=== PATIENT | male | born 1955 | race Two or more races ===

== ENCOUNTER 2016-12-17 00:57 | Inpatient (IN) | payer SELFPAY ==
[~2016-12-17] VITALS: Ht 170.2 cm; Wt 90.7 kg
[2016-12-17] MEDS ORDERED: ONDANSETRON PF 4 MG/2 ML VIAL. IV ONE (01:15)
[2016-12-17] MEDS ORDERED: MORPHINE SULFATE 4 MG/ML DISP.SYRIN. IV ONE ×2 (01:15→03:15)
[2016-12-17] MEDS ORDERED: IV NORMAL SALINE 1000ML BAG 1,000 ML IV SCH ×2 (01:15→04:30)
[2016-12-17] MEDS ORDERED: FAMOTIDINE 20 MG/2 ML VIAL IVP ONE (01:15)
--- NOTE | 2016-12-17 01:17 | PHYS DOC ---
Past Medical History Past Medical History: High Cholesterol Additional Past Surgical Histo: hernia repair, hemorrhoidectomy Adult General Chief Complaint Chief Complaint: ABDOMINAL PAIN HPI HPI Patient is a 61 year old male who presents with abdominal pain and N/V. Patient reports ~1999 this evening he had acute onset of sharp epigastric pain that is accompanied by nausea and vomiting. No clear inciting or mitigating factors. He tried some pepto-bismol with insufficient relief. No chest pain, no SOB. No other acute complaints. No prior similar episodes. Review of Systems Review of Systems Constitutional: Denies fever or chills Eyes: Denies change in visual acuity or eye pain HENT: Denies nasal congestion or sore throat Respiratory: Denies cough or shortness of breath Cardiovascular: Denies chest pain GI: Epigastric abdominal pain, nausea, vomiting. Denies bloody stools or diarrhea : Denies dysuria or hematuria Musculoskeletal: Denies back pain or joint pain Integument: Denies rash or skin lesions Neurologic: Denies headache, focal weakness or sensory changes Current Medications Current Medications Current Medications Medications (Trade) Dose Ordered Sig/David Start Time Stop Time Status Last Admin Dose Admin Acetaminophen (Tylenol) 650 mg PRN Q4HRS PRN 12/17/16 04:30 12/18/16 04:29 Famotidine (Pepcid) 20 mg 1X ONCE 12/17/16 01:15 12/17/16 01:18 DC 12/17/16 01:55 20 MG Info (Do NOT chart on this entry -- for MONITORING) 1 each PRN DAILY PRN 12/17/16 01:30 12/19/16 01:29 Iohexol (Omnipaque 300 Mg/ml) 75 ml 1X ONCE 12/17/16 01:30 12/17/16 01:31 DC 12/17/16 03:22 75 ML Morphine Sulfate 4 mg 4 mg PRN Q1HR PRN 12/17/16 04:30 Ondansetron HCl (Zofran) 4 mg PRN Q8HRS PRN 12/17/16 04:30 12/18/16 04:29 Sodium Chloride (Iv Sodium Chloride 0.9% 1000ml Bag) 1,000 ml @ 125 mls/hr Q8H 12/17/16 04:30 12/18/16 04:29 Allergies Allergies Allergies Coded Allergies Type Severity Reaction Last Updated Verified No Known Drug Allergies 12/17/16 No Physical Exam Physical Exam Constitutional: Well developed, well nourished, no acute distress, non-toxic appearance HENT: Normocephalic, atraumatic, bilateral external ears normal Eyes: EOMI, conjunctiva normal, no discharge Neck: Normal range of motion, no stridor Cardiovascular: Heart rate normal, regular rhythm, no murmur Lungs & Thorax: Bilateral breath sounds clear to auscultation Abdomen: Bowel sounds normal, soft, non-distended, LUQ/epigastric/RUQ TTP without guarding or rebound Skin: Warm, dry, no erythema, no rash Extremities: No obvious deformity, no edema Neurologic: Alert and oriented X 3, no gross deficits noted Psychologic: Affect normal, judgement normal, mood normal Current Patient Data Vital Signs Vital Signs Date Time Temp Pulse Resp B/P Pulse Ox O2 Delivery O2 Flow Rate FiO2 12/17/16 03:39 99 Room Air 12/17/16 01:55 22 12/17/16 01:16 98.1 58 148/76 98.1 Lab Values Laboratory Tests Test 12/17/16 01:50 12/17/16 02:45 12/17/16 02:53 12/17/16 03:07 White Blood Count 15.3x10^3/uL (4.0-11.0) H Red Blood Count 4.71x10^6/uL (4.30-5.70) Hemoglobin 14.9g/dL (13.0-17.5) Hematocrit 45.2% (39.0-53.0) Mean Corpuscular Volume 96fL (79-100) Mean Corpuscular Hemoglobin 32pg (25-35) Mean Corpuscular Hemoglobin Concent 33g/dL (31-37) Red Cell Distribution Width 13.3% (11.5-14.5) Platelet Count 146x10^3/uL (140-400) Neutrophils (%) (Auto) 73% (31-73) Lymphocytes (%) (Auto) 20% (24-48) L Monocytes (%) (Auto) 7% (0-9) Eosinophils (%) (Auto) 0% (0-3) Basophils (%) (Auto) 0% (0-3) Neutrophils # (Auto) 11.1x10^3uL (1.8-7.7) H Lymphocytes # (Auto) 3.0x10^3/uL (1.0-4.8) Monocytes # (Auto) 1.0x10^3/uL (0.0-1.1) Eosinophils # (Auto) 0.1x10^3/uL (0.0-0.7) Basophils # (Auto) 0.0x10^3/uL (0.0-0.2) Sodium Level 143mmol/L (136-145) Potassium Level 3.8mmol/L (3.5-5.1) Chloride Level 106mmol/L (98-107) Carbon Dioxide Level 26mmol/L (21-32) Anion Gap 11 (6-14) 19mmol/L (6-14) H Blood Urea Nitrogen 12mg/dL (8-26) Creatinine 0.8mg/dL (0.7-1.3) Estimated GFR (Cockcroft-Gault) 98.6 BUN/Creatinine Ratio 15 (6-20) Glucose Level 187mg/dL (70-99) H 184mg/dL (70-99) H Calcium Level 8.1mg/dL (8.5-10.1) L Total Bilirubin 0.5mg/dL (0.2-1.0) Aspartate Amino Transferase (AST) 136U/L (15-37) H Alanine Aminotransferase (ALT) 141U/L (16-63) H Alkaline Phosphatase 81U/L (46-116) Troponin I Quantitative < 0.017ng/mL (0.000-0.055) Total Protein 6.8g/dL (6.4-8.2) Albumin 3.6g/dL (3.4-5.0) Albumin/Globulin Ratio 1.1 (1.0-1.7) Cholesterol Level 151mg/dL (0-200) Lipase 51529F/L (73-393) H POC Hemoglobin 15.0g/dL (14-18) POC Hematocrit 44% (37-52) POC Sodium 141mmol/L (135-145) POC Potassium 4.0mmol/L (3.5-5.0) POC Chloride 102mmol/L (98-110) POC Total CO2 25mmol/L (23-32) POC Blood Urea Nitrogen 12mg/dL (8-26) POC Creatinine 0.7mg/dL (0.5-1.4) POC Ionized Calcium (Joanie) 1.09mmol/L (1.13-1.32) L Urine Collection Type Unknown Urine Color Yellow Urine Clarity Clear Urine pH 5.5 Urine Specific [place] 1.010 Urine Protein Negativemg/dL (NEG-TRACE) Urine Glucose (UA) Negativemg/dL (NEG) Urine Ketones (Stick) Negativemg/dL (NEG) Urine Blood Negative (NEG) Urine Nitrite Negative (NEG) Urine Bilirubin Negative (NEG) Urine Urobilinogen Dipstick 0.2mg/dL (0.2 mg/dL) Urine Leukocyte Esterase Negative (NEG) Urine RBC Occ/HPF (0-2) Urine WBC Occ/HPF (0-4) Urine Squamous Epithelial Cells Few/LPF Urine Bacteria 0/HPF (0-FEW) Urine Hyaline Casts Few/HPF Urine Mucus Slight/LPF Laboratory Tests 12/17/16 01:50 Laboratory Tests 12/17/16 02:45 12/17/16 02:53 EKG EKG EKG (my read): sinus rhythm, rate 62, normal axis, nonspecific ST changes Radiology/Procedures Radiology/Procedures CT A/P: IMPRESSION Acute pancreatitis. Cholelithiasis Course & Med Decision Making Course & Med Decision Making Pertinent Labs and Imaging studies reviewed. (See chart for details) Patient is 61-year-old male who presents with upper abdominal pain accompanied by nausea and vomiting. Differential includes gastritis, pancreatitis, PUD, bowel obstruction. Will obtain labs and CT abdomen/pelvis to evaluate. IV fluids , pain medication, nausea medication, Pepcid ordered for relief of symptoms. Labs notable for markedly elevated lipase. Imaging results as above. Discussed results with patient. Will admit under the care of Dr. Callaway for further evaluation and treatment. Dragon Disclaimer Dragon Disclaimer This electronic medical record was generated, in whole or in part, using a voice recognition dictation system. Departure Departure Impression: Primary Impression: Pancreatitis Disposition: ADMITTED INPATIENT Admitting Physician: Other Condition: GUARDED Referrals: MARTIN CENTENO (PCP) CHRISTIAN ERICKSON MD Dec 17, 2016 01:17
[2016-12-17] MEDS ORDERED: IOHEXOL 300 MG/ML 75 ML VIAL IV ONE (01:30)
[2016-12-17] MEDS ORDERED: CONTRAST GIVEN MC PRN (01:30)
[2016-12-17 02:00] LABS: BASO % 0 % (0-3); EOS % 0 % (0-3); HEMATOCRIT 45.2 % (39.0-53.0); HEMOGLOBIN 14.9 g/dL (13.0-17.5); LYMPH % 20 % (24-48); MEAN CORPUSCULAR HEMOGLOBIN 32 pg (25-35); MEAN CORPUSCULAR HGB CONC 33 g/dL (31-37); MEAN CORPUSCULAR VOLUME 96 fL (79-100); MONO % 7 % (0-9); NEUT % 73 % (31-73); PLATELET COUNT 146 x10^3/uL (140-400); RED BLOOD COUNT 4.71 x10^6/uL (4.30-5.70); RED CELL DISTRIBUTION WIDTH 13.3 % (11.5-14.5); WHITE BLOOD COUNT 15.3 x10^3/uL (4.0-11.0)
[2016-12-17 03:04] LABS: CALCIUM 8.1 mg/dL (8.5-10.1); CREATININE 0.8 mg/dL (0.7-1.3); GFR 98.6; POTASSIUM 3.8 mmol/L (3.5-5.1)
[2016-12-17 03:10] LABS: ALBUMIN 3.6 g/dL (3.4-5.0); ALBUMIN/GLOBULIN RATIO 1.1 (1.0-1.7); TOTAL BILIRUBIN 0.5 mg/dL (0.2-1.0); TOTAL PROTEIN 6.8 g/dL (6.4-8.2)
[2016-12-17 03:26] LABS: BILIRUBIN,URINE NEGATIVE (NEG); GLUCOSE,URINE NEGATIVE (NEG); NITRITE,URINE NEGATIVE (NEG); PH,URINE 5.5; PROTEIN,URINE NEGATIVE (NEG-TRACE); UROBILINOGEN,URINE 0.2 mg/dL (0.2 mg/dL)
[2016-12-17 03:36] LABS: BACTERIA,URINE 0 /HPF (0-FEW); RBC,URINE OCC /HPF (0-2); SQUAMOUS EPITHELIAL CELL,UR FEW /LPF; WBC,URINE OCC /HPF (0-4)
--- NOTE | 2016-12-17 03:51 | RAD ---
PROCEDURE CT abdomen and pelvis with contrast HISTORY upper abdominal pain started 8:00pm 12/16/2016; nausea and vomiting
omni 300 75cc TECHNIQUE One or more of the following individualized dose reduction techniques were utilized for this examination: 1. Automated exposure control; 2. Adjustment of the mA and/or kV according to patient size; 3. Use of iterative reconstruction technique. COMPARISON FINDINGS CT scan of the abdomen and pelvis was done using 75 mL Omnipaque 300. The lung bases are clear except for minimal atelectasis. There is no effusion. There is a gallstone in the gallbladder. The gallbladder wall is not thickened. Liver is normal in appearance. Spleen is unremarkable. Adrenal glands are normal. There is no mass or hydronephrosis in the kidneys. There is fluid and edema surrounding the tail of the pancreas consistent with an acute pancreatitis. Fluid extends into the mesentery. There is no adenopathy. There is no free air. There is no bowel obstruction. Appendix is normal. Bladder is mildly distended. There is a trace of fluid in the pelvis. IMPRESSION Acute pancreatitis. Cholelithiasis Electronically signed by: Artemio Alvarado MD (Dec 17, 2016 03:50:16)
[2016-12-17] MEDS ORDERED: ACETAMINOPHEN 325 MG TABLET. PO PRN ×2 (04:30→09:45)
[2016-12-17] MEDS ORDERED: ONDANSETRON PF 4 MG/2 ML VIAL. IV PRN (04:30)
--- NOTE | 2016-12-17 04:51 | ACF ---
Admit Criteria Forms Admit Criteria Forms Admit Criteria Forms PANCREATITIS Clinical Indications for Admission to Inpatient Care (Place 'X' for any and all applicable criteria): Admission is indicated for ANY ONE of the following (1)(2)(3)(4): [X]I. Acute pancreatitis[A] as indicated by 2 or more of the following: [X]a) Abdominal pain (eg, epigastric, left upper quadrant) [X]b) Serum amylase or serum lipase greater than 3 times the upper limit of normal [ ]c) Characteristic findings from abdominal imaging (eg, pancreatic inflammation, pancreatic necrosis, peripancreatic fluid collection)[B] [ ]II. Pancreatitis (acute or chronic ) requiring inpatient care as indicated by 1 or more of the following : [ ]a) Inability to maintain oral hydration Hypoxemia [ ]b) Evidence of infection (eg, fever, peripancreatic abscess) [ ]c) Severe pain requiring acute inpatient management [ ]d) Hemodynamic instability [ ]e) Hypoxemia [ ]f) Acute renal failure [ ]g) Severe electrolyte abnormalities Extended stay beyond goal length of stay may be needed for (1)(11) [ ]a) Severe acute pancreatitis (10)(19) [ ]b) Persistent symptoms, ascites, or pleural effusion [ ]c) Abdominal compartment syndrome (10) [ ]d) Late complications [ ]e) Acute renal failure (27) [ ]f) Gallstones in gallbladder The original [employer] content created by [employer] has been revised. The portions of the content which have been revised are identified through the use of italic text or in bold,and [facility] has neither reviewed nor approved the modified material.All other unmodified content is copyright [employer]. Please see references footnoted in the original [employer] edition 2016 GILMA SETH Dec 17, 2016 04:51
--- NOTE | 2016-12-17 06:23 | EKG ---
[facility] [address] [place] [address] Test Date: 2016-12-17 Test Time: 01:25:25 Pat Name: GEN QURESHI Department: Room: Gender: M Fiscal Manager: : [id number] Requested By: CHRISTIAN ERICKSON Order Number: [id number] Reading MD: Chris Singh Measurements Intervals [place] Rate: 62 P: NM: QRS: 50 QRSD: 82 T: 60 QT: 428 QTc: 437 Interpretive Statements SINUS RHYTHM NONSPECIFIC ST-T WAVE CHANGES. RI6.01 Unconfirmed report No previous ECG available for comparison Electronically Signed On 12-24-2016 10:26:57 DOCUMENTATION ANALYST by Chris Singh
[2016-12-17 07:45] VITALS: BP 141/82
--- NOTE | 2016-12-17 08:43 | PDOC2 ---
GI CONSULT Reason For Consult: Pancreatitis HPI: HPI: 61 y/o male admitted through the ER where he was evaluated for periumbilical pain w/ n/v that began yesterday. He ate soup at a restaurant, went home, and began vomiting excessively. Pain began around this time. Denies similar episodes, reflux/indigestion, change in appetite, weight loss, diarrhea, hematemesis, hematochezia, melena. Occasional constipation treated w / an OTC organic med. Drinks only on holidays. H/o colonoscopy many years ago , apparently normal except for hemorrhoids. No previous EGD. Labs w/ elevated WBC 15.3, normal bili, AST 136, ALT 141, lipase >92511. CT w/ fluid and edema around tail of pancreas, gallstone, and normal liver. PMH: PMH: constipation, right inguinal hernia repair, hemorrhoidectomy FH: Family History: No pertinent hx Social History: Smoke: Quit (30 years ago) ALCOHOL: occassional (holidays) Drugs: None ROS: GEN: Denies fevers, chills, sweats HEENT: Denies blurred vision, sore throat CV: Denies chest pain RESP: Denies shortness of air, cough GI: Per HPI : Denies hematuria, dysuria ENDO: Denies weight changes NEURO: Denies confusion, dizziness MSK: Denies weakness, joint pain/swelling SKIN: Denies jaundice, pruritus VItals: Vitals: Vital Signs Date Time Temp Pulse Resp B/P Pulse Ox O2 Delivery O2 Flow Rate FiO2 12/17/16 07:45 99.9 75 18 141/82 96 Room Air 99.9 Labs: Labs: Laboratory Tests Test 12/17/16 01:50 12/17/16 02:45 12/17/16 02:53 12/17/16 03:07 White Blood Count 15.3x10^3/uL (4.0-11.0) Red Blood Count 4.71x10^6/uL (4.30-5.70) Hemoglobin 14.9g/dL (13.0-17.5) Hematocrit 45.2% (39.0-53.0) Mean Corpuscular Volume 96fL (79-100) Mean Corpuscular Hemoglobin 32pg (25-35) Mean Corpuscular Hemoglobin Concent 33g/dL (31-37) Red Cell Distribution Width 13.3% (11.5-14.5) Platelet Count 146x10^3/uL (140-400) Neutrophils (%) (Auto) 73% (31-73) Lymphocytes (%) (Auto) 20% (24-48) Monocytes (%) (Auto) 7% (0-9) Eosinophils (%) (Auto) 0% (0-3) Basophils (%) (Auto) 0% (0-3) Neutrophils # (Auto) 11.1x10^3uL (1.8-7.7) Lymphocytes # (Auto) 3.0x10^3/uL (1.0-4.8) Monocytes # (Auto) 1.0x10^3/uL (0.0-1.1) Eosinophils # (Auto) 0.1x10^3/uL (0.0-0.7) Basophils # (Auto) 0.0x10^3/uL (0.0-0.2) Sodium Level 143mmol/L (136-145) Potassium Level 3.8mmol/L (3.5-5.1) Chloride Level 106mmol/L (98-107) Carbon Dioxide Level 26mmol/L (21-32) Anion Gap 11 (6-14) 19mmol/L (6-14) Blood Urea Nitrogen 12mg/dL (8-26) Creatinine 0.8mg/dL (0.7-1.3) Estimated GFR (Cockcroft-Gault) 98.6 BUN/Creatinine Ratio 15 (6-20) Glucose Level 187mg/dL (70-99) 184mg/dL (70-99) Calcium Level 8.1mg/dL (8.5-10.1) Total Bilirubin 0.5mg/dL (0.2-1.0) Aspartate Amino Transf (AST/SGOT) 136U/L (15-37) Alanine Aminotransferase (ALT/SGPT) 141U/L (16-63) Alkaline Phosphatase 81U/L (46-116) Troponin I Quantitative < 0.017ng/mL (0.000-0.055) Total Protein 6.8g/dL (6.4-8.2) Albumin 3.6g/dL (3.4-5.0) Albumin/Globulin Ratio 1.1 (1.0-1.7) Cholesterol Level 151mg/dL (0-200) Lipase 93276X/L (73-393) Bedside Hemoglobin 15.0g/dL (14-18) Bedside Hematocrit 44% (37-52) Bedside Sodium 141mmol/L (135-145) Bedside Potassium 4.0mmol/L (3.5-5.0) Bedside Chloride 102mmol/L (98-110) Bedside Total CO2 25mmol/L (23-32) Bedside Blood Urea Nitrogen 12mg/dL (8-26) Bedside Creatinine 0.7mg/dL (0.5-1.4) Bedside Ionized Calcium (Joanie) 1.09mmol/L (1.13-1.32) Urine Collection Type Unknown Urine Color Yellow Urine Clarity Clear Urine pH 5.5 Urine Specific [place] 1.010 Urine Protein Negativemg/dL (NEG-TRACE) Urine Glucose (UA) Negativemg/dL (NEG) Urine Ketones (Stick) Negativemg/dL (NEG) Urine Blood Negative (NEG) Urine Nitrite Negative (NEG) Urine Bilirubin Negative (NEG) Urine Urobilinogen Dipstick 0.2mg/dL (0.2 mg/dL) Urine Leukocyte Esterase Negative (NEG) Urine RBC Occ/HPF (0-2) Urine WBC Occ/HPF (0-4) Urine Squamous Epithelial Cells Few/LPF Urine Bacteria 0/HPF (0-FEW) Urine Hyaline Casts Few/HPF Urine Mucus Slight/LPF Allergies: Coded Allergies: No Known Drug Allergies (Unverified , 12/17/16) Medications: Current Medications Medications (Trade) Dose Ordered Sig/David Route PRN Reason Start Time Stop Time Status Last Admin Dose Admin Sodium Chloride (Iv Sodium Chloride 0.9% 1000ml Bag) 1,000 ml @ 1,000 mls/hr Q1H IV 12/17/16 01:15 12/17/16 02:14 DC 12/17/16 01:55 Ondansetron HCl (Zofran) 4 mg 1X ONCE IV 12/17/16 01:15 12/17/16 01:18 DC 12/17/16 01:55 Famotidine (Pepcid) 20 mg 1X ONCE IVP 12/17/16 01:15 12/17/16 01:18 DC 12/17/16 01:55 Morphine Sulfate 4 mg 1X ONCE IV 12/17/16 01:15 12/17/16 01:18 DC 12/17/16 01:55 Iohexol (Omnipaque 300 Mg/ml) 75 ml 1X ONCE IV 12/17/16 01:30 12/17/16 01:31 DC 12/17/16 03:22 Morphine Sulfate 4 mg 4 mg 1X ONCE IV 12/17/16 03:15 12/17/16 03:16 DC 12/17/16 03:39 Sodium Chloride (Iv Sodium Chloride 0.9% 1000ml Bag) 1,000 ml @ 125 mls/hr Q8H IV 12/17/16 04:30 12/18/16 04:29 12/17/16 08:33 Imaging: Imaging: CT A/P w/ IV contrast 12/17/16 FINDINGS The lung bases are clear except for minimal atelectasis. There is no effusion. There is a gallstone in the gallbladder. The gallbladder wall is not thickened. Liver is normal in appearance. Spleen is unremarkable. Adrenal glands are normal. There is no mass or hydronephrosis in the kidneys. There is fluid and edema surrounding the tail of the pancreas consistent with an acute pancreatitis. Fluid extends into the mesentery. There is no adenopathy. There is no free air. There is no bowel obstruction. Appendix is normal. Bladder is mildly distended. There is a trace of fluid in the pelvis. IMPRESSION Acute pancreatitis. Cholelithiasis PE: GEN: NAD HEENT: Atraumatic, PERRL LUNGS: CTAB HEART: RRR ABD: BS quiet, soft, periumbilical tenderness to epigastrium, less so RUQ EXTREMITY: No edema SKIN: No rashes, no jaundice NEURO/PSYCH: A & O 3 A/P: A/P: Periumbilical pain, n/v -sudden onset yesterday Elevated lipase, abnormal CT A/P -lipase >17155, fluid and edema around pancreatic tail w/ gallstone -no h/o pancreatitis CRC screen -recalls previous colonoscopy years ago revealing hemorrhoids -- Pancreatitis. Continue medical therapy w/ NPO, anti-emetics, pain control. Follow labs. Will ask surgery to see re: gallstone. RUPERTO GORDILLO Dec 17, 2016 08:43
[2016-12-17] MEDS ORDERED: hydrALAZINE 20 MG/ML VIAL. IVP PRN (09:45)
[2016-12-17] MEDS ORDERED: ALBUTEROL SULFATE 2.5 MG/3 ML NEBU. NEB PRN (09:45)
--- NOTE | 2016-12-17 09:56 | PDOC2 ---
DEEPENRIQUE Rufino [employer]OR 12/17/16 0956: CONSULT Date of Consult Date of Consult DATE: 12/17/16 TIME: 09:51 Reason for Consult Reason for Consult: gallstone pancreatitis Referring Physician Referring Physician: ER Identification/Chief Complaint Chief Complaint abdominal pain Source Source: Chart review, Patient History of Present Illness Reason for Visit: Admitted with acute onset of periumbilical pain and vomiting after eating yesterday. Still having some pain, no emesis. No similar symptoms in past, no history of pancreatitis Past Medical History Past Medical History no pertinent hx Past Surgical History Past Surgical History: Hernia Repair Family History Family History: Other (noncontributory to current illness ) Social History Quit (30 years ago) ALCOHOL: occassional (holidays) Drugs: None Current Problem List Problem List Problems Medical Problems: (1) Pancreatitis Status: Acute Current Medications Current Medications Current Medications Sodium Chloride (Iv Sodium Chloride 0.9% 1000ml Bag) 1,000 ml @ 1,000 mls/hr Q1H IV Last administered on 12/17/16 01:55; Start 12/17/16 at 01:15; Stop at 02:14; Status DC Ondansetron HCl (Zofran) 4 mg 1X ONCE IV Last administered on 12/17/16 01:55 ; Start 12/17/16 at 01:15; Stop 12/17/16 at 01:18; Status DC Famotidine (Pepcid) 20 mg 1X ONCE IVP Last administered on 12/17/16 01:55; Start 12/17/16 at 01:15; Stop 12/17/16 at 01:18; Status DC Morphine Sulfate 4 mg 1X ONCE IV Last administered on 12/17/16 01:55; Start 12/17/16 at 01:15; Stop 12/17/16 at 01:18; Status DC Iohexol (Omnipaque 300 Mg/ml) 75 ml 1X ONCE IV Last administered on 12/17/16 03:22; Start 12/17/16 at 01:30; Stop 12/17/16 at 01:31; Status DC Info (Do NOT chart on this entry -- for MONITORING) 1 each PRN DAILY PRN MC SEE COMMENTS; Start 12/17/16 at 01:30; Stop 12/19/16 at 01:29 Morphine Sulfate 4 mg 1X ONCE IV Last administered on 12/17/16 03:39; Start 12/17/16 at 03:15; Stop 12/17/16 at 03:16; Status DC Ondansetron HCl (Zofran) 4 mg PRN Q8HRS PRN IV NAUSEA/VOMITING; Start 12/17/16 at 04:30; Stop 12/18/16 at 04:29 Morphine Sulfate 4 mg 4 mg PRN Q1HR PRN IV PAIN; Start 12/17/16 at 04:30 Sodium Chloride (Iv Sodium Chloride 0.9% 1000ml Bag) 1,000 ml @ 125 mls/hr Q8H IV Last administered on 12/17/16 08:33; Start 12/17/16 at 04:30; Stop at 09:42; Status DC Acetaminophen (Tylenol) 650 mg PRN Q4HRS PRN PO FEVER; Start 12/17/16 at 04:30 ; Stop 12/18/16 at 04:29 Acetaminophen (Tylenol) 325 mg PRN Q6HRS PRN PO MILD PAIN / TEMP; Start at 09:45 Acetaminophen/ Hydrocodone Bitart (Lortab 5/325) 1 tab PRN Q6HRS PRN PO MODERATE TO SEVERE PAIN; Start 12/17/16 at 09:45 Hydralazine HCl (Apresoline) 10 mg PRN Q4HRS PRN IVP ELEVATED BP, SEE COMMENTS ; Start 12/17/16 at 09:45 Ondansetron HCl (Zofran) 4 mg PRN Q8HRS PRN IV NAUSEA/VOMITING; Start 12/17/16 at 09:45 Albuterol Sulfate 2.5 mg 2.5 mg PRN Q4HRS PRN NEB SHORTNESS OF BREATH; Start at 09:45 Sodium Chloride (Iv Sodium Chloride 0.9% 1000ml Bag) 1,000 ml @ 150 mls/hr Q6H40M IV ; Start 12/17/16 at 09:41; Stop 12/19/16 at 09:40 Allergies Allergies: Coded Allergies: No Known Drug Allergies (Unverified , 12/17/16) ROS General: No: Chills, Other (fevers) PSYCHOLOGICAL ROS: No: Anxiety, Depression Eyes: No Double vision HEENT: No: Heacaches, Sore Throat Hematological and Lymphatic: No: Bleeding Problems, Blood Clots Respiratory: No: Cough, Shortness of breath Cardiovascular: No Chest Pain, No Palpitations Gastrointestinal: Yes Other (see hpi) Genitourinary: No Dysuria, No Hematuria Musculoskeletal: No Joint Pain, No Muscle Pain Neurological: No Confusion, No Numbness/Tingling Skin: No Pruritus, No Rash Physical Exam General: Alert, Oriented X3, Cooperative, No acute distress HEENT: PERRLA, Mucous membr. moist/pink Lungs: Clear to auscultation, Normal air movement Heart: Regular rate, Normal S1, Normal S2, No murmurs Abdomen: Soft, Other (periumbilical tenderness ) Extremities: No clubbing, No cyanosis Skin: No rashes, No breakdown Neuro: Normal gait, Normal speech Psych/Mental Status: Mental status NL, Mood NL MUSCULOSKELETAL: No deformity, No swelling Vitals VITALS Vital Signs Date Time Temp Pulse Resp B/P Pulse Ox O2 Delivery O2 Flow Rate FiO2 12/17/16 07:45 99.9 75 18 141/82 96 Room Air 99.9 Labs Labs Laboratory Tests Test 12/17/16 01:50 12/17/16 02:45 12/17/16 02:53 12/17/16 03:07 White Blood Count 15.3x10^3/uL (4.0-11.0) Red Blood Count 4.71x10^6/uL (4.30-5.70) Hemoglobin 14.9g/dL (13.0-17.5) Hematocrit 45.2% (39.0-53.0) Mean Corpuscular Volume 96fL (79-100) Mean Corpuscular Hemoglobin 32pg (25-35) Mean Corpuscular Hemoglobin Concent 33g/dL (31-37) Red Cell Distribution Width 13.3% (11.5-14.5) Platelet Count 146x10^3/uL (140-400) Neutrophils (%) (Auto) 73% (31-73) Lymphocytes (%) (Auto) 20% (24-48) Monocytes (%) (Auto) 7% (0-9) Eosinophils (%) (Auto) 0% (0-3) Basophils (%) (Auto) 0% (0-3) Neutrophils # (Auto) 11.1x10^3uL (1.8-7.7) Lymphocytes # (Auto) 3.0x10^3/uL (1.0-4.8) Monocytes # (Auto) 1.0x10^3/uL (0.0-1.1) Eosinophils # (Auto) 0.1x10^3/uL (0.0-0.7) Basophils # (Auto) 0.0x10^3/uL (0.0-0.2) Sodium Level 143mmol/L (136-145) Potassium Level 3.8mmol/L (3.5-5.1) Chloride Level 106mmol/L (98-107) Carbon Dioxide Level 26mmol/L (21-32) Anion Gap 11 (6-14) 19mmol/L (6-14) Blood Urea Nitrogen 12mg/dL (8-26) Creatinine 0.8mg/dL (0.7-1.3) Estimated GFR (Cockcroft-Gault) 98.6 BUN/Creatinine Ratio 15 (6-20) Glucose Level 187mg/dL (70-99) 184mg/dL (70-99) Calcium Level 8.1mg/dL (8.5-10.1) Total Bilirubin 0.5mg/dL (0.2-1.0) Aspartate Amino Transf (AST/SGOT) 136U/L (15-37) Alanine Aminotransferase (ALT/SGPT) 141U/L (16-63) Alkaline Phosphatase 81U/L (46-116) Troponin I Quantitative < 0.017ng/mL (0.000-0.055) Total Protein 6.8g/dL (6.4-8.2) Albumin 3.6g/dL (3.4-5.0) Albumin/Globulin Ratio 1.1 (1.0-1.7) Cholesterol Level 151mg/dL (0-200) Lipase 44491W/L (73-393) Bedside Hemoglobin 15.0g/dL (14-18) Bedside Hematocrit 44% (37-52) Bedside Sodium 141mmol/L (135-145) Bedside Potassium 4.0mmol/L (3.5-5.0) Bedside Chloride 102mmol/L (98-110) Bedside Total CO2 25mmol/L (23-32) Bedside Blood Urea Nitrogen 12mg/dL (8-26) Bedside Creatinine 0.7mg/dL (0.5-1.4) Bedside Ionized Calcium (Joanie) 1.09mmol/L (1.13-1.32) Urine Collection Type Unknown Urine Color Yellow Urine Clarity Clear Urine pH 5.5 Urine Specific [place] 1.010 Urine Protein Negativemg/dL (NEG-TRACE) Urine Glucose (UA) Negativemg/dL (NEG) Urine Ketones (Stick) Negativemg/dL (NEG) Urine Blood Negative (NEG) Urine Nitrite Negative (NEG) Urine Bilirubin Negative (NEG) Urine Urobilinogen Dipstick 0.2mg/dL (0.2 mg/dL) Urine Leukocyte Esterase Negative (NEG) Urine RBC Occ/HPF (0-2) Urine WBC Occ/HPF (0-4) Urine Squamous Epithelial Cells Few/LPF Urine Bacteria 0/HPF (0-FEW) Urine Hyaline Casts Few/HPF Urine Mucus Slight/LPF Laboratory Tests Test 12/17/16 01:50 12/17/16 02:45 12/17/16 02:53 12/17/16 03:07 White Blood Count 15.3x10^3/uL (4.0-11.0) Red Blood Count 4.71x10^6/uL (4.30-5.70) Hemoglobin 14.9g/dL (13.0-17.5) Hematocrit 45.2% (39.0-53.0) Mean Corpuscular Volume 96fL (79-100) Mean Corpuscular Hemoglobin 32pg (25-35) Mean Corpuscular Hemoglobin Concent 33g/dL (31-37) Red Cell Distribution Width 13.3% (11.5-14.5) Platelet Count 146x10^3/uL (140-400) Neutrophils (%) (Auto) 73% (31-73) Lymphocytes (%) (Auto) 20% (24-48) Monocytes (%) (Auto) 7% (0-9) Eosinophils (%) (Auto) 0% (0-3) Basophils (%) (Auto) 0% (0-3) Neutrophils # (Auto) 11.1x10^3uL (1.8-7.7) Lymphocytes # (Auto) 3.0x10^3/uL (1.0-4.8) Monocytes # (Auto) 1.0x10^3/uL (0.0-1.1) Eosinophils # (Auto) 0.1x10^3/uL (0.0-0.7) Basophils # (Auto) 0.0x10^3/uL (0.0-0.2) Sodium Level 143mmol/L (136-145) Potassium Level 3.8mmol/L (3.5-5.1) Chloride Level 106mmol/L (98-107) Carbon Dioxide Level 26mmol/L (21-32) Anion Gap 11 (6-14) 19mmol/L (6-14) Blood Urea Nitrogen 12mg/dL (8-26) Creatinine 0.8mg/dL (0.7-1.3) Estimated GFR (Cockcroft-Gault) 98.6 BUN/Creatinine Ratio 15 (6-20) Glucose Level 187mg/dL (70-99) 184mg/dL (70-99) Calcium Level 8.1mg/dL (8.5-10.1) Total Bilirubin 0.5mg/dL (0.2-1.0) Aspartate Amino Transf (AST/SGOT) 136U/L (15-37) Alanine Aminotransferase (ALT/SGPT) 141U/L (16-63) Alkaline Phosphatase 81U/L (46-116) Troponin I Quantitative < 0.017ng/mL (0.000-0.055) Total Protein 6.8g/dL (6.4-8.2) Albumin 3.6g/dL (3.4-5.0) Albumin/Globulin Ratio 1.1 (1.0-1.7) Cholesterol Level 151mg/dL (0-200) Lipase 36513F/L (73-393) Bedside Hemoglobin 15.0g/dL (14-18) Bedside Hematocrit 44% (37-52) Bedside Sodium 141mmol/L (135-145) Bedside Potassium 4.0mmol/L (3.5-5.0) Bedside Chloride 102mmol/L (98-110) Bedside Total CO2 25mmol/L (23-32) Bedside Blood Urea Nitrogen 12mg/dL (8-26) Bedside Creatinine 0.7mg/dL (0.5-1.4) Bedside Ionized Calcium (Joanie) 1.09mmol/L (1.13-1.32) Urine Collection Type Unknown Urine Color Yellow Urine Clarity Clear Urine pH 5.5 Urine Specific [place] 1.010 Urine Protein Negativemg/dL (NEG-TRACE) Urine Glucose (UA) Negativemg/dL (NEG) Urine Ketones (Stick) Negativemg/dL (NEG) Urine Blood Negative (NEG) Urine Nitrite Negative (NEG) Urine Bilirubin Negative (NEG) Urine Urobilinogen Dipstick 0.2mg/dL (0.2 mg/dL) Urine Leukocyte Esterase Negative (NEG) Urine RBC Occ/HPF (0-2) Urine WBC Occ/HPF (0-4) Urine Squamous Epithelial Cells Few/LPF Urine Bacteria 0/HPF (0-FEW) Urine Hyaline Casts Few/HPF Urine Mucus Slight/LPF Images Images ct reviewed Assessment/Plan Assessment/Plan gallstone pancreatitis lipase > 19417 inflammatory changes to pancreas obesity, BMI 31.9 supportive measures for pancreatitis--bowel rest, hydration, pain control, electrolyte management lap indio once acute process resolved IVANIA PRO MD 12/17/16 1411: CONSULT Allergies Allergies: Coded Allergies: No Known Drug Allergies (Unverified , 12/17/16) Assessment/Plan Assessment/Plan Pt seen and examined. Agree with Ms. Adame's note Pt with c/o periumbelical pain TTP cont supportive care elective lap indio with grams d/w pt and pt's Thanks for consult! ENRIQUE ADAME APRN Dec 17, 2016 09:56 IVANIA PRO MD Dec 17, 2016 14:11
[2016-12-17] MEDS ORDERED: no home medications (10:48)
[2016-12-17 10:53] VITALS: BP 133/75
[2016-12-17] MEDS: HYDROCODONE/APAP 5/325MG TABLET. PO PRN (14:27)
[2016-12-17 14:58] VITALS: BP 118/83
[2016-12-17] MEDS: IV NORMAL SALINE 1000ML BAG 1,000 ML IV SCH ×3 (15:22→23:01)
--- NOTE | 2016-12-17 16:27 | PDOC1 ---
History and Physical Past Surgical History Past Surgical History: Hernia Repair Family History Family History: Other (noncontributory to current illness ) Social History Smoke: Quit (30 years ago) ALCOHOL: occassional (holidays) Drugs: None Current Problem List Problem List Problems Medical Problems: (1) Pancreatitis Status: Acute Current Medications Current Medications Current Medications Medications (Trade) Dose Ordered Sig/David Start Time Stop Time Status Last Admin Dose Admin Acetaminophen (Tylenol) 325 mg PRN Q6HRS PRN 12/17/16 09:45 Acetaminophen/ Hydrocodone Bitart (Lortab 5/325) 1 tab PRN Q6HRS PRN 12/17/16 09:45 12/17/16 14:27 1 TAB Albuterol Sulfate 2.5 mg 2.5 mg PRN Q4HRS PRN 12/17/16 09:45 Famotidine (Pepcid) 20 mg 1X ONCE 12/17/16 01:15 12/17/16 01:18 DC 12/17/16 01:55 20 MG Hydralazine HCl (Apresoline) 10 mg PRN Q4HRS PRN 12/17/16 09:45 Info (Do NOT chart on this entry -- for MONITORING) 1 each PRN DAILY PRN 12/17/16 01:30 12/19/16 01:29 Iohexol (Omnipaque 300 Mg/ml) 75 ml 1X ONCE 12/17/16 01:30 12/17/16 01:31 DC 12/17/16 03:22 75 ML Morphine Sulfate 4 mg PRN Q1HR PRN 12/17/16 04:30 Ondansetron HCl (Zofran) 4 mg PRN Q8HRS PRN 12/17/16 09:45 Sodium Chloride (Iv Sodium Chloride 0.9% 1000ml Bag) 1,000 ml @ 150 mls/hr Q6H40M 12/17/16 09:41 12/19/16 09:40 12/17/16 15:22 150 MLS/HR Allergies Allergies Allergies Coded Allergies Type Severity Reaction Last Updated Verified No Known Drug Allergies 12/17/16 No ROS Review of System CONSTITUTIONAL: No fever or chills EYES: No recent changes SKIN: No rash or itching CARDIOVASCULAR: No chest pain, syncope, palpitations, or edema RESPIRATORY: No SOB or cough GASTROINTESTINAL: abdominal pain NEUROLOGICAL: No headaches or weakness ENDOCRINE: No cold or heat intolerance GENITOURINARY: No urgency or frequency of urination MUSCULOSKELETAL: No back pain or joint pain LYMPHATICS: No enlarged lymph nodes PSYCHIATRIC: No anxiety or depression Physical Exam Physical Exam GEN.: No apparent distress. Alert and oriented. HEENT: Head is normocephalic, atraumatic NECK: Supple. normal airflow LUNGS: Clear to auscultation.no jvd HEART: RRR, S1, S2 present. Peripheral pulses intact ABDOMEN: Soft, epigastric tender. Positive bowel sounds. EXTREMITIES: Without any cyanosis. NEUROLOGIC: Normal speech, normal tone PSYCHIATRIC: Normal affect, normal mood. SKIN: No visible skin lesions Vitals Vitals Vital Signs Date Time Temp Pulse Resp B/P Pulse Ox O2 Delivery O2 Flow Rate FiO2 12/17/16 15:24 18 Room Air 12/17/16 14:58 100.0 88 118/83 95 100.0 Labs Labs Laboratory Tests Test 12/17/16 01:50 12/17/16 02:45 12/17/16 02:53 12/17/16 03:07 White Blood Count 15.3x10^3/uL (4.0-11.0) Red Blood Count 4.71x10^6/uL (4.30-5.70) Hemoglobin 14.9g/dL (13.0-17.5) Hematocrit 45.2% (39.0-53.0) Mean Corpuscular Volume 96fL (79-100) Mean Corpuscular Hemoglobin 32pg (25-35) Mean Corpuscular Hemoglobin Concent 33g/dL (31-37) Red Cell Distribution Width 13.3% (11.5-14.5) Platelet Count 146x10^3/uL (140-400) Neutrophils (%) (Auto) 73% (31-73) Lymphocytes (%) (Auto) 20% (24-48) Monocytes (%) (Auto) 7% (0-9) Eosinophils (%) (Auto) 0% (0-3) Basophils (%) (Auto) 0% (0-3) Neutrophils # (Auto) 11.1x10^3uL (1.8-7.7) Lymphocytes # (Auto) 3.0x10^3/uL (1.0-4.8) Monocytes # (Auto) 1.0x10^3/uL (0.0-1.1) Eosinophils # (Auto) 0.1x10^3/uL (0.0-0.7) Basophils # (Auto) 0.0x10^3/uL (0.0-0.2) Sodium Level 143mmol/L (136-145) Potassium Level 3.8mmol/L (3.5-5.1) Chloride Level 106mmol/L (98-107) Carbon Dioxide Level 26mmol/L (21-32) Anion Gap 11 (6-14) 19mmol/L (6-14) Blood Urea Nitrogen 12mg/dL (8-26) Creatinine 0.8mg/dL (0.7-1.3) Estimated GFR (Cockcroft-Gault) 98.6 BUN/Creatinine Ratio 15 (6-20) Glucose Level 187mg/dL (70-99) 184mg/dL (70-99) Calcium Level 8.1mg/dL (8.5-10.1) Total Bilirubin 0.5mg/dL (0.2-1.0) Aspartate Amino Transf (AST/SGOT) 136U/L (15-37) Alanine Aminotransferase (ALT/SGPT) 141U/L (16-63) Alkaline Phosphatase 81U/L (46-116) Troponin I Quantitative < 0.017ng/mL (0.000-0.055) Total Protein 6.8g/dL (6.4-8.2) Albumin 3.6g/dL (3.4-5.0) Albumin/Globulin Ratio 1.1 (1.0-1.7) Cholesterol Level 151mg/dL (0-200) Lipase 38792P/L (73-393) Bedside Hemoglobin 15.0g/dL (14-18) Bedside Hematocrit 44% (37-52) Bedside Sodium 141mmol/L (135-145) Bedside Potassium 4.0mmol/L (3.5-5.0) Bedside Chloride 102mmol/L (98-110) Bedside Total CO2 25mmol/L (23-32) Bedside Blood Urea Nitrogen 12mg/dL (8-26) Bedside Creatinine 0.7mg/dL (0.5-1.4) Bedside Ionized Calcium (Joanie) 1.09mmol/L (1.13-1.32) Urine Collection Type Unknown Urine Color Yellow Urine Clarity Clear Urine pH 5.5 Urine Specific [place] 1.010 Urine Protein Negativemg/dL (NEG-TRACE) Urine Glucose (UA) Negativemg/dL (NEG) Urine Ketones (Stick) Negativemg/dL (NEG) Urine Blood Negative (NEG) Urine Nitrite Negative (NEG) Urine Bilirubin Negative (NEG) Urine Urobilinogen Dipstick 0.2mg/dL (0.2 mg/dL) Urine Leukocyte Esterase Negative (NEG) Urine RBC Occ/HPF (0-2) Urine WBC Occ/HPF (0-4) Urine Squamous Epithelial Cells Few/LPF Urine Bacteria 0/HPF (0-FEW) Urine Hyaline Casts Few/HPF Urine Mucus Slight/LPF Laboratory Tests Test 12/17/16 01:50 12/17/16 02:45 12/17/16 02:53 12/17/16 03:07 White Blood Count 15.3x10^3/uL (4.0-11.0) Red Blood Count 4.71x10^6/uL (4.30-5.70) Hemoglobin 14.9g/dL (13.0-17.5) Hematocrit 45.2% (39.0-53.0) Mean Corpuscular Volume 96fL (79-100) Mean Corpuscular Hemoglobin 32pg (25-35) Mean Corpuscular Hemoglobin Concent 33g/dL (31-37) Red Cell Distribution Width 13.3% (11.5-14.5) Platelet Count 146x10^3/uL (140-400) Neutrophils (%) (Auto) 73% (31-73) Lymphocytes (%) (Auto) 20% (24-48) Monocytes (%) (Auto) 7% (0-9) Eosinophils (%) (Auto) 0% (0-3) Basophils (%) (Auto) 0% (0-3) Neutrophils # (Auto) 11.1x10^3uL (1.8-7.7) Lymphocytes # (Auto) 3.0x10^3/uL (1.0-4.8) Monocytes # (Auto) 1.0x10^3/uL (0.0-1.1) Eosinophils # (Auto) 0.1x10^3/uL (0.0-0.7) Basophils # (Auto) 0.0x10^3/uL (0.0-0.2) Sodium Level 143mmol/L (136-145) Potassium Level 3.8mmol/L (3.5-5.1) Chloride Level 106mmol/L (98-107) Carbon Dioxide Level 26mmol/L (21-32) Anion Gap 11 (6-14) 19mmol/L (6-14) Blood Urea Nitrogen 12mg/dL (8-26) Creatinine 0.8mg/dL (0.7-1.3) Estimated GFR (Cockcroft-Gault) 98.6 BUN/Creatinine Ratio 15 (6-20) Glucose Level 187mg/dL (70-99) 184mg/dL (70-99) Calcium Level 8.1mg/dL (8.5-10.1) Total Bilirubin 0.5mg/dL (0.2-1.0) Aspartate Amino Transf (AST/SGOT) 136U/L (15-37) Alanine Aminotransferase (ALT/SGPT) 141U/L (16-63) Alkaline Phosphatase 81U/L (46-116) Troponin I Quantitative < 0.017ng/mL (0.000-0.055) Total Protein 6.8g/dL (6.4-8.2) Albumin 3.6g/dL (3.4-5.0) Albumin/Globulin Ratio 1.1 (1.0-1.7) Cholesterol Level 151mg/dL (0-200) Lipase 81802L/L (73-393) Bedside Hemoglobin 15.0g/dL (14-18) Bedside Hematocrit 44% (37-52) Bedside Sodium 141mmol/L (135-145) Bedside Potassium 4.0mmol/L (3.5-5.0) Bedside Chloride 102mmol/L (98-110) Bedside Total CO2 25mmol/L (23-32) Bedside Blood Urea Nitrogen 12mg/dL (8-26) Bedside Creatinine 0.7mg/dL (0.5-1.4) Bedside Ionized Calcium (Joanie) 1.09mmol/L (1.13-1.32) Urine Collection Type Unknown Urine Color Yellow Urine Clarity Clear Urine pH 5.5 Urine Specific [place] 1.010 Urine Protein Negativemg/dL (NEG-TRACE) Urine Glucose (UA) Negativemg/dL (NEG) Urine Ketones (Stick) Negativemg/dL (NEG) Urine Blood Negative (NEG) Urine Nitrite Negative (NEG) Urine Bilirubin Negative (NEG) Urine Urobilinogen Dipstick 0.2mg/dL (0.2 mg/dL) Urine Leukocyte Esterase Negative (NEG) Urine RBC Occ/HPF (0-2) Urine WBC Occ/HPF (0-4) Urine Squamous Epithelial Cells Few/LPF Urine Bacteria 0/HPF (0-FEW) Urine Hyaline Casts Few/HPF Urine Mucus Slight/LPF VTE Prophylaxis Ordered VTE Prophylaxis Devices: Yes VTE Pharmacological Prophylaxi: No LOR FONSECA MD Dec 17, 2016 16:27
[2016-12-17 19:00] VITALS: BP 140/73
[2016-12-17 22:36] VITALS: BP 125/65
[2016-12-18] MEDS: HYDROCODONE/APAP 5/325MG TABLET. PO PRN ×3 (00:42→19:23)
--- NOTE | 2016-12-18 02:38 | HP ---
ADMIT DATE: 12/17/2016 CHIEF COMPLAINT: Abdominal pain. HISTORY OF PRESENT ILLNESS: A 61-year-old male patient with no significant medical problems, presented to the ER with complaints of periumbilical abdominal pain for 1-day duration. He denies any prior history of pancreatitis or alcohol abuse or any gastrointestinal problems. The pain started after eating food at a restaurant and which is intractable in nature and at the time of my examination, this pain is 6/10, is better with IV pain medications. He denies any significant family history of GI problems at the time of admission. The patient has significantly elevated lipase, and a CT of the abdomen shows suspected food and edema around the tail of pancreas. PAST MEDICAL HISTORY: Please see my electronic H and P. REVIEW OF SYSTEMS: Please see my electronic H and P. LABORATORY FINDINGS: WBC 15.3, hemoglobin 14.9, MCV is 96, platelets 146. Chemistry: Sodium is 143, potassium 3.8, chloride 106, carbon dioxide 26, gap is 11, BUN is 12, creatinine is 0.7, glucose 187, AST 136, and lipase is 27,816. Urine nitrites negative, bilirubin negative, leukocyte esterase negative, casts few. ASSESSMENT: Acute pancreatitis, unclear etiology. PLAN: 1. The patient has been admitted to med/surg floor, and aggressive IV hydration with IV normal saline, n.p.o. and pain control with Lortab and morphine sulfate. 2. IV Zofran for nausea. Gastroenterology and General Surgery has been consulted. 3. Imaging studies ordered to rule out any gallstones. 4. No DVT prophylaxis. 5. Monitor labs, CBC, BMP, and lipase in a.m. LOR FONSECA MD DR: TRAMAINE/geneva JOB#: [id number] / [id number] CAM[place]
[2016-12-18] MEDS: IV NORMAL SALINE 1000ML BAG 1,000 ML IV SCH ×3 (04:57→18:25)
[2016-12-18 05:14] LABS: BASO % 0 % (0-3); EOS % 0 % (0-3); HEMATOCRIT 45.1 % (39.0-53.0); HEMOGLOBIN 14.9 g/dL (13.0-17.5); LYMPH # 1.4 x10^3/uL (1.0-4.8); LYMPH % 12 % (24-48); MEAN CORPUSCULAR HEMOGLOBIN 32 pg (25-35); MEAN CORPUSCULAR HGB CONC 33 g/dL (31-37); MEAN CORPUSCULAR VOLUME 97 fL (79-100); MONO % 5 % (0-9); NEUT % 83 % (31-73); PLATELET COUNT 123 x10^3/uL (140-400); RED BLOOD COUNT 4.65 x10^6/uL (4.30-5.70); RED CELL DISTRIBUTION WIDTH 13.4 % (11.5-14.5); WHITE BLOOD COUNT 11.9 x10^3/uL (4.0-11.0)
[2016-12-18 05:45] LABS: ALBUMIN 3.6 g/dL (3.4-5.0); ALBUMIN/GLOBULIN RATIO 1.1 (1.0-1.7); CALCIUM 8.7 mg/dL (8.5-10.1); CREATININE 0.7 mg/dL (0.7-1.3); POTASSIUM 4.1 mmol/L (3.5-5.1); TOTAL BILIRUBIN 1.3 mg/dL (0.2-1.0)
[2016-12-18 07:00] VITALS: BP 148/79
[2016-12-18] MEDS: ONDANSETRON PF 4 MG/2 ML VIAL. IV PRN ×2 (07:42→19:23)
--- NOTE | 2016-12-18 10:00 | PDOC ---
ENRIQUE ADAME AMBULETTE DRIVER 12/18/16 1000: SURGICAL PROGRESS NOTE Subjective feels better periumbilical pain with palpation Vital Signs Vital Signs Date Time Temp Pulse Resp B/P Pulse Ox O2 Delivery O2 Flow Rate FiO2 12/18/16 08:00 Room Air 12/18/16 07:42 18 12/18/16 07:00 99.8 82 148/79 96 99.8 I&O Intake and Output 12/18/16 07:00 Intake Total 2800 ml Output Total 525 ml Balance 2275 ml Intake Oral 0 ml IV Total 2800 ml Output Urine Total 525 ml General: Alert, Oriented X3, Cooperative, No acute distress Abdomen: Soft, Other (tender periumbilical ) Labs Laboratory Tests Test 12/17/16 01:50 12/17/16 02:45 12/17/16 02:53 12/17/16 03:07 White Blood Count 15.3x10^3/uL (4.0-11.0) Red Blood Count 4.71x10^6/uL (4.30-5.70) Hemoglobin 14.9g/dL (13.0-17.5) Hematocrit 45.2% (39.0-53.0) Mean Corpuscular Volume 96fL (79-100) Mean Corpuscular Hemoglobin 32pg (25-35) Mean Corpuscular Hemoglobin Concent 33g/dL (31-37) Red Cell Distribution Width 13.3% (11.5-14.5) Platelet Count 146x10^3/uL (140-400) Neutrophils (%) (Auto) 73% (31-73) Lymphocytes (%) (Auto) 20% (24-48) Monocytes (%) (Auto) 7% (0-9) Eosinophils (%) (Auto) 0% (0-3) Basophils (%) (Auto) 0% (0-3) Neutrophils # (Auto) 11.1x10^3uL (1.8-7.7) Lymphocytes # (Auto) 3.0x10^3/uL (1.0-4.8) Monocytes # (Auto) 1.0x10^3/uL (0.0-1.1) Eosinophils # (Auto) 0.1x10^3/uL (0.0-0.7) Basophils # (Auto) 0.0x10^3/uL (0.0-0.2) Sodium Level 143mmol/L (136-145) Potassium Level 3.8mmol/L (3.5-5.1) Chloride Level 106mmol/L (98-107) Carbon Dioxide Level 26mmol/L (21-32) Anion Gap 11 (6-14) 19mmol/L (6-14) Blood Urea Nitrogen 12mg/dL (8-26) Creatinine 0.8mg/dL (0.7-1.3) Estimated GFR (Cockcroft-Gault) 98.6 BUN/Creatinine Ratio 15 (6-20) Glucose Level 187mg/dL (70-99) 184mg/dL (70-99) Calcium Level 8.1mg/dL (8.5-10.1) Total Bilirubin 0.5mg/dL (0.2-1.0) Aspartate Amino Transf (AST/SGOT) 136U/L (15-37) Alanine Aminotransferase (ALT/SGPT) 141U/L (16-63) Alkaline Phosphatase 81U/L (46-116) Troponin I Quantitative < 0.017ng/mL (0.000-0.055) Total Protein 6.8g/dL (6.4-8.2) Albumin 3.6g/dL (3.4-5.0) Albumin/Globulin Ratio 1.1 (1.0-1.7) Cholesterol Level 151mg/dL (0-200) Lipase 27793T/L (73-393) Bedside Hemoglobin 15.0g/dL (14-18) Bedside Hematocrit 44% (37-52) Bedside Sodium 141mmol/L (135-145) Bedside Potassium 4.0mmol/L (3.5-5.0) Bedside Chloride 102mmol/L (98-110) Bedside Total CO2 25mmol/L (23-32) Bedside Blood Urea Nitrogen 12mg/dL (8-26) Bedside Creatinine 0.7mg/dL (0.5-1.4) Bedside Ionized Calcium (Joanie) 1.09mmol/L (1.13-1.32) Urine Collection Type Unknown Urine Color Yellow Urine Clarity Clear Urine pH 5.5 Urine Specific [place] 1.010 Urine Protein Negativemg/dL (NEG-TRACE) Urine Glucose (UA) Negativemg/dL (NEG) Urine Ketones (Stick) Negativemg/dL (NEG) Urine Blood Negative (NEG) Urine Nitrite Negative (NEG) Urine Bilirubin Negative (NEG) Urine Urobilinogen Dipstick 0.2mg/dL (0.2 mg/dL) Urine Leukocyte Esterase Negative (NEG) Urine RBC Occ/HPF (0-2) Urine WBC Occ/HPF (0-4) Urine Squamous Epithelial Cells Few/LPF Urine Bacteria 0/HPF (0-FEW) Urine Hyaline Casts Few/HPF Urine Mucus Slight/LPF Test 12/18/16 04:40 White Blood Count 11.9x10^3/uL (4.0-11.0) Red Blood Count 4.65x10^6/uL (4.30-5.70) Hemoglobin 14.9g/dL (13.0-17.5) Hematocrit 45.1% (39.0-53.0) Mean Corpuscular Volume 97fL (79-100) Mean Corpuscular Hemoglobin 32pg (25-35) Mean Corpuscular Hemoglobin Concent 33g/dL (31-37) Red Cell Distribution Width 13.4% (11.5-14.5) Platelet Count 123x10^3/uL (140-400) Neutrophils (%) (Auto) 83% (31-73) Lymphocytes (%) (Auto) 12% (24-48) Monocytes (%) (Auto) 5% (0-9) Eosinophils (%) (Auto) 0% (0-3) Basophils (%) (Auto) 0% (0-3) Neutrophils # (Auto) 9.8x10^3uL (1.8-7.7) Lymphocytes # (Auto) 1.4x10^3/uL (1.0-4.8) Monocytes # (Auto) 0.6x10^3/uL (0.0-1.1) Eosinophils # (Auto) 0.0x10^3/uL (0.0-0.7) Basophils # (Auto) 0.0x10^3/uL (0.0-0.2) Sodium Level 140mmol/L (136-145) Potassium Level 4.1mmol/L (3.5-5.1) Chloride Level 104mmol/L (98-107) Carbon Dioxide Level 26mmol/L (21-32) Anion Gap 10 (6-14) Blood Urea Nitrogen 10mg/dL (8-26) Creatinine 0.7mg/dL (0.7-1.3) Estimated GFR (Cockcroft-Gault) 115.0 BUN/Creatinine Ratio 14 (6-20) Glucose Level 121mg/dL (70-99) Calcium Level 8.7mg/dL (8.5-10.1) Total Bilirubin 1.3mg/dL (0.2-1.0) Aspartate Amino Transf (AST/SGOT) 40U/L (15-37) Alanine Aminotransferase (ALT/SGPT) 83U/L (16-63) Alkaline Phosphatase 71U/L (46-116) Total Protein 7.0g/dL (6.4-8.2) Albumin 3.6g/dL (3.4-5.0) Albumin/Globulin Ratio 1.1 (1.0-1.7) Lipase 1892U/L (73-393) Laboratory Tests Test 12/18/16 04:40 White Blood Count 11.9x10^3/uL (4.0-11.0) Red Blood Count 4.65x10^6/uL (4.30-5.70) Hemoglobin 14.9g/dL (13.0-17.5) Hematocrit 45.1% (39.0-53.0) Mean Corpuscular Volume 97fL (79-100) Mean Corpuscular Hemoglobin 32pg (25-35) Mean Corpuscular Hemoglobin Concent 33g/dL (31-37) Red Cell Distribution Width 13.4% (11.5-14.5) Platelet Count 123x10^3/uL (140-400) Neutrophils (%) (Auto) 83% (31-73) Lymphocytes (%) (Auto) 12% (24-48) Monocytes (%) (Auto) 5% (0-9) Eosinophils (%) (Auto) 0% (0-3) Basophils (%) (Auto) 0% (0-3) Neutrophils # (Auto) 9.8x10^3uL (1.8-7.7) Lymphocytes # (Auto) 1.4x10^3/uL (1.0-4.8) Monocytes # (Auto) 0.6x10^3/uL (0.0-1.1) Eosinophils # (Auto) 0.0x10^3/uL (0.0-0.7) Basophils # (Auto) 0.0x10^3/uL (0.0-0.2) Sodium Level 140mmol/L (136-145) Potassium Level 4.1mmol/L (3.5-5.1) Chloride Level 104mmol/L (98-107) Carbon Dioxide Level 26mmol/L (21-32) Anion Gap 10 (6-14) Blood Urea Nitrogen 10mg/dL (8-26) Creatinine 0.7mg/dL (0.7-1.3) Estimated GFR (Cockcroft-Gault) 115.0 BUN/Creatinine Ratio 14 (6-20) Glucose Level 121mg/dL (70-99) Calcium Level 8.7mg/dL (8.5-10.1) Total Bilirubin 1.3mg/dL (0.2-1.0) Aspartate Amino Transf (AST/SGOT) 40U/L (15-37) Alanine Aminotransferase (ALT/SGPT) 83U/L (16-63) Alkaline Phosphatase 71U/L (46-116) Total Protein 7.0g/dL (6.4-8.2) Albumin 3.6g/dL (3.4-5.0) Albumin/Globulin Ratio 1.1 (1.0-1.7) Lipase 1892U/L (73-393) Problem List Problems Medical Problems: (1) Pancreatitis Status: Acute Assessment/Plan gradual improvement tmax 100 continue bowel rest, hydration, pain management lap [place] once acute process resolved Problems: IVANIA PRO MD 12/18/16 1402: SURGICAL PROGRESS NOTE Assessment/Plan Pt seen and examined. Agree with MsMckayla Adame's note Pt reports persistent pain, but up moving around TTP epgastric cont supportive care Problems: ENRIQUE ADAME APRN Dec 18, 2016 10:00 IVANIA PRO MD Dec 18, 2016 14:02
--- NOTE | 2016-12-18 10:00 | PDOC ---
PROGRESS NOTES Chief Complaint Chief Complaint cc: abdominal pain A/P Acute pancreatitis, Possible gall stone related. fevers Plan Lipase improving continue iv hydration GI and GS following continue to have temp spikes, WBC improved, no other signs of infections consult ID for fevers clinically improving, possible cholecystectomy once symptoms get better. Vitals Vitals Vital Signs Date Time Temp Pulse Resp B/P Pulse Ox O2 Delivery O2 Flow Rate FiO2 12/18/16 08:00 Room Air 12/18/16 07:42 18 12/18/16 07:00 99.8 82 148/79 96 99.8 Physical Exam General: Alert, Oriented X3, Cooperative, No acute distress Heart: Regular rate, Normal S1, Normal S2, No murmurs Lungs: Clear, Wheezing Abdomen: Normal bowel sounds, Soft, Other (periumbilical tenderness ) Extremities: No clubbing, No cyanosis Skin: No rashes, No breakdown Labs LABS Laboratory Tests Test 12/18/16 04:40 White Blood Count 11.9x10^3/uL (4.0-11.0) Red Blood Count 4.65x10^6/uL (4.30-5.70) Hemoglobin 14.9g/dL (13.0-17.5) Hematocrit 45.1% (39.0-53.0) Mean Corpuscular Volume 97fL (79-100) Mean Corpuscular Hemoglobin 32pg (25-35) Mean Corpuscular Hemoglobin Concent 33g/dL (31-37) Red Cell Distribution Width 13.4% (11.5-14.5) Platelet Count 123x10^3/uL (140-400) Neutrophils (%) (Auto) 83% (31-73) Lymphocytes (%) (Auto) 12% (24-48) Monocytes (%) (Auto) 5% (0-9) Eosinophils (%) (Auto) 0% (0-3) Basophils (%) (Auto) 0% (0-3) Neutrophils # (Auto) 9.8x10^3uL (1.8-7.7) Lymphocytes # (Auto) 1.4x10^3/uL (1.0-4.8) Monocytes # (Auto) 0.6x10^3/uL (0.0-1.1) Eosinophils # (Auto) 0.0x10^3/uL (0.0-0.7) Basophils # (Auto) 0.0x10^3/uL (0.0-0.2) Sodium Level 140mmol/L (136-145) Potassium Level 4.1mmol/L (3.5-5.1) Chloride Level 104mmol/L (98-107) Carbon Dioxide Level 26mmol/L (21-32) Anion Gap 10 (6-14) Blood Urea Nitrogen 10mg/dL (8-26) Creatinine 0.7mg/dL (0.7-1.3) Estimated GFR (Cockcroft-Gault) 115.0 BUN/Creatinine Ratio 14 (6-20) Glucose Level 121mg/dL (70-99) Calcium Level 8.7mg/dL (8.5-10.1) Total Bilirubin 1.3mg/dL (0.2-1.0) Aspartate Amino Transf (AST/SGOT) 40U/L (15-37) Alanine Aminotransferase (ALT/SGPT) 83U/L (16-63) Alkaline Phosphatase 71U/L (46-116) Total Protein 7.0g/dL (6.4-8.2) Albumin 3.6g/dL (3.4-5.0) Albumin/Globulin Ratio 1.1 (1.0-1.7) Lipase 1892U/L (73-393) Assessment and Plan Assessmemt and Plan Problems Medical Problems: (1) Pancreatitis Status: Acute Problems: Comment Review of Relevant I have reviewed the following items brayan (where applicable) has been applied. Labs Laboratory Tests Test 12/17/16 01:50 12/17/16 02:45 12/17/16 02:53 12/17/16 03:07 White Blood Count 15.3x10^3/uL (4.0-11.0) Red Blood Count 4.71x10^6/uL (4.30-5.70) Hemoglobin 14.9g/dL (13.0-17.5) Hematocrit 45.2% (39.0-53.0) Mean Corpuscular Volume 96fL (79-100) Mean Corpuscular Hemoglobin 32pg (25-35) Mean Corpuscular Hemoglobin Concent 33g/dL (31-37) Red Cell Distribution Width 13.3% (11.5-14.5) Platelet Count 146x10^3/uL (140-400) Neutrophils (%) (Auto) 73% (31-73) Lymphocytes (%) (Auto) 20% (24-48) Monocytes (%) (Auto) 7% (0-9) Eosinophils (%) (Auto) 0% (0-3) Basophils (%) (Auto) 0% (0-3) Neutrophils # (Auto) 11.1x10^3uL (1.8-7.7) Lymphocytes # (Auto) 3.0x10^3/uL (1.0-4.8) Monocytes # (Auto) 1.0x10^3/uL (0.0-1.1) Eosinophils # (Auto) 0.1x10^3/uL (0.0-0.7) Basophils # (Auto) 0.0x10^3/uL (0.0-0.2) Sodium Level 143mmol/L (136-145) Potassium Level 3.8mmol/L (3.5-5.1) Chloride Level 106mmol/L (98-107) Carbon Dioxide Level 26mmol/L (21-32) Anion Gap 11 (6-14) 19mmol/L (6-14) Blood Urea Nitrogen 12mg/dL (8-26) Creatinine 0.8mg/dL (0.7-1.3) Estimated GFR (Cockcroft-Gault) 98.6 BUN/Creatinine Ratio 15 (6-20) Glucose Level 187mg/dL (70-99) 184mg/dL (70-99) Calcium Level 8.1mg/dL (8.5-10.1) Total Bilirubin 0.5mg/dL (0.2-1.0) Aspartate Amino Transf (AST/SGOT) 136U/L (15-37) Alanine Aminotransferase (ALT/SGPT) 141U/L (16-63) Alkaline Phosphatase 81U/L (46-116) Troponin I Quantitative < 0.017ng/mL (0.000-0.055) Total Protein 6.8g/dL (6.4-8.2) Albumin 3.6g/dL (3.4-5.0) Albumin/Globulin Ratio 1.1 (1.0-1.7) Cholesterol Level 151mg/dL (0-200) Lipase 34685N/L (73-393) Bedside Hemoglobin 15.0g/dL (14-18) Bedside Hematocrit 44% (37-52) Bedside Sodium 141mmol/L (135-145) Bedside Potassium 4.0mmol/L (3.5-5.0) Bedside Chloride 102mmol/L (98-110) Bedside Total CO2 25mmol/L (23-32) Bedside Blood Urea Nitrogen 12mg/dL (8-26) Bedside Creatinine 0.7mg/dL (0.5-1.4) Bedside Ionized Calcium (Joanie) 1.09mmol/L (1.13-1.32) Urine Collection Type Unknown Urine Color Yellow Urine Clarity Clear Urine pH 5.5 Urine Specific [place] 1.010 Urine Protein Negativemg/dL (NEG-TRACE) Urine Glucose (UA) Negativemg/dL (NEG) Urine Ketones (Stick) Negativemg/dL (NEG) Urine Blood Negative (NEG) Urine Nitrite Negative (NEG) Urine Bilirubin Negative (NEG) Urine Urobilinogen Dipstick 0.2mg/dL (0.2 mg/dL) Urine Leukocyte Esterase Negative (NEG) Urine RBC Occ/HPF (0-2) Urine WBC Occ/HPF (0-4) Urine Squamous Epithelial Cells Few/LPF Urine Bacteria 0/HPF (0-FEW) Urine Hyaline Casts Few/HPF Urine Mucus Slight/LPF Test 12/18/16 04:40 White Blood Count 11.9x10^3/uL (4.0-11.0) Red Blood Count 4.65x10^6/uL (4.30-5.70) Hemoglobin 14.9g/dL (13.0-17.5) Hematocrit 45.1% (39.0-53.0) Mean Corpuscular Volume 97fL (79-100) Mean Corpuscular Hemoglobin 32pg (25-35) Mean Corpuscular Hemoglobin Concent 33g/dL (31-37) Red Cell Distribution Width 13.4% (11.5-14.5) Platelet Count 123x10^3/uL (140-400) Neutrophils (%) (Auto) 83% (31-73) Lymphocytes (%) (Auto) 12% (24-48) Monocytes (%) (Auto) 5% (0-9) Eosinophils (%) (Auto) 0% (0-3) Basophils (%) (Auto) 0% (0-3) Neutrophils # (Auto) 9.8x10^3uL (1.8-7.7) Lymphocytes # (Auto) 1.4x10^3/uL (1.0-4.8) Monocytes # (Auto) 0.6x10^3/uL (0.0-1.1) Eosinophils # (Auto) 0.0x10^3/uL (0.0-0.7) Basophils # (Auto) 0.0x10^3/uL (0.0-0.2) Sodium Level 140mmol/L (136-145) Potassium Level 4.1mmol/L (3.5-5.1) Chloride Level 104mmol/L (98-107) Carbon Dioxide Level 26mmol/L (21-32) Anion Gap 10 (6-14) Blood Urea Nitrogen 10mg/dL (8-26) Creatinine 0.7mg/dL (0.7-1.3) Estimated GFR (Cockcroft-Gault) 115.0 BUN/Creatinine Ratio 14 (6-20) Glucose Level 121mg/dL (70-99) Calcium Level 8.7mg/dL (8.5-10.1) Total Bilirubin 1.3mg/dL (0.2-1.0) Aspartate Amino Transf (AST/SGOT) 40U/L (15-37) Alanine Aminotransferase (ALT/SGPT) 83U/L (16-63) Alkaline Phosphatase 71U/L (46-116) Total Protein 7.0g/dL (6.4-8.2) Albumin 3.6g/dL (3.4-5.0) Albumin/Globulin Ratio 1.1 (1.0-1.7) Lipase 1892U/L (73-393) Laboratory Tests Test 12/18/16 04:40 White Blood Count 11.9x10^3/uL (4.0-11.0) Red Blood Count 4.65x10^6/uL (4.30-5.70) Hemoglobin 14.9g/dL (13.0-17.5) Hematocrit 45.1% (39.0-53.0) Mean Corpuscular Volume 97fL (79-100) Mean Corpuscular Hemoglobin 32pg (25-35) Mean Corpuscular Hemoglobin Concent 33g/dL (31-37) Red Cell Distribution Width 13.4% (11.5-14.5) Platelet Count 123x10^3/uL (140-400) Neutrophils (%) (Auto) 83% (31-73) Lymphocytes (%) (Auto) 12% (24-48) Monocytes (%) (Auto) 5% (0-9) Eosinophils (%) (Auto) 0% (0-3) Basophils (%) (Auto) 0% (0-3) Neutrophils # (Auto) 9.8x10^3uL (1.8-7.7) Lymphocytes # (Auto) 1.4x10^3/uL (1.0-4.8) Monocytes # (Auto) 0.6x10^3/uL (0.0-1.1) Eosinophils # (Auto) 0.0x10^3/uL (0.0-0.7) Basophils # (Auto) 0.0x10^3/uL (0.0-0.2) Sodium Level 140mmol/L (136-145) Potassium Level 4.1mmol/L (3.5-5.1) Chloride Level 104mmol/L (98-107) Carbon Dioxide Level 26mmol/L (21-32) Anion Gap 10 (6-14) Blood Urea Nitrogen 10mg/dL (8-26) Creatinine 0.7mg/dL (0.7-1.3) Estimated GFR (Cockcroft-Gault) 115.0 BUN/Creatinine Ratio 14 (6-20) Glucose Level 121mg/dL (70-99) Calcium Level 8.7mg/dL (8.5-10.1) Total Bilirubin 1.3mg/dL (0.2-1.0) Aspartate Amino Transf (AST/SGOT) 40U/L (15-37) Alanine Aminotransferase (ALT/SGPT) 83U/L (16-63) Alkaline Phosphatase 71U/L (46-116) Total Protein 7.0g/dL (6.4-8.2) Albumin 3.6g/dL (3.4-5.0) Albumin/Globulin Ratio 1.1 (1.0-1.7) Lipase 1892U/L (73-393) Medications Current Medications Sodium Chloride (Iv Sodium Chloride 0.9% 1000ml Bag) 1,000 ml @ 1,000 mls/hr Q1H IV Last administered on 12/17/16 01:55; Start 12/17/16 at 01:15; Stop at 02:14; Status DC Ondansetron HCl (Zofran) 4 mg 1X ONCE IV Last administered on 12/17/16 01:55 ; Start 12/17/16 at 01:15; Stop 12/17/16 at 01:18; Status DC Famotidine (Pepcid) 20 mg 1X ONCE IVP Last administered on 12/17/16 01:55; Start 12/17/16 at 01:15; Stop 12/17/16 at 01:18; Status DC Morphine Sulfate 4 mg 1X ONCE IV Last administered on 12/17/16 01:55; Start 12/17/16 at 01:15; Stop 12/17/16 at 01:18; Status DC Iohexol (Omnipaque 300 Mg/ml) 75 ml 1X ONCE IV Last administered on 12/17/16 03:22; Start 12/17/16 at 01:30; Stop 12/17/16 at 01:31; Status DC Info (Do NOT chart on this entry -- for MONITORING) 1 each PRN DAILY PRN MC SEE COMMENTS; Start 12/17/16 at 01:30; Stop 12/19/16 at 01:29 Morphine Sulfate 4 mg 1X ONCE IV Last administered on 12/17/16 03:39; Start 12/17/16 at 03:15; Stop 12/17/16 at 03:16; Status DC Ondansetron HCl (Zofran) 4 mg PRN Q8HRS PRN IV NAUSEA/VOMITING Last administered on 12/17/16 19:28; Start 12/17/16 at 04:30; Stop 12/18/16 at 04:29 ; Status DC Morphine Sulfate 4 mg 4 mg PRN Q1HR PRN IV PAIN; Start 12/17/16 at 04:30 Sodium Chloride (Iv Sodium Chloride 0.9% 1000ml Bag) 1,000 ml @ 125 mls/hr Q8H IV Last administered on 12/17/16 08:33; Start 12/17/16 at 04:30; Stop at 09:42; Status DC Acetaminophen (Tylenol) 650 mg PRN Q4HRS PRN PO FEVER; Start 12/17/16 at 04:30 ; Stop 12/18/16 at 04:29; Status DC Acetaminophen (Tylenol) 325 mg PRN Q6HRS PRN PO MILD PAIN / TEMP; Start at 09:45 Acetaminophen/ Hydrocodone Bitart (Lortab 5/325) 1 tab PRN Q6HRS PRN PO MODERATE TO SEVERE PAIN Last administered on 12/18/16 07:42; Start 12/17/16 at 09:45 Hydralazine HCl (Apresoline) 10 mg PRN Q4HRS PRN IVP ELEVATED BP, SEE COMMENTS ; Start 12/17/16 at 09:45 Ondansetron HCl (Zofran) 4 mg PRN Q8HRS PRN IV NAUSEA/VOMITING Last administered on 12/18/16 07:42; Start 12/17/16 at 09:45 Albuterol Sulfate 2.5 mg 2.5 mg PRN Q4HRS PRN NEB SHORTNESS OF BREATH; Start at 09:45 Sodium Chloride (Iv Sodium Chloride 0.9% 1000ml Bag) 1,000 ml @ 150 mls/hr Q6H40M IV Last administered on 12/18/16 04:57; Start 12/17/16 at 09:41; Stop 12/19/16 at 09:40 Active Scripts Active Reported [no home medications] Vitals/I & O Vital Sign - Last 24 Hours 12/17/16 12/17/16 12/17/16 12/17/16 10:53 14:27 14:58 15:24 Temp 99.5 100.0 99.5 100.0 Pulse 81 88 Resp 18 18 18 18 B/P 133/75 118/83 Pulse Ox 96 95 O2 Delivery Room Air Room Air Room Air Room Air 12/17/16 12/17/16 12/17/16 12/18/16 19:00 20:18 22:36 07:00 Temp 98.1 98.5 99.8 98.1 98.5 99.8 Pulse 71 67 82 Resp 18 18 19 B/P 140/73 125/65 148/79 Pulse Ox 94 96 96 O2 Delivery Room Air Room Air Room Air Room Air 12/18/16 12/18/16 07:42 08:00 Resp 18 O2 Delivery Room Air Intake and Output 12/17/16 12/17/16 12/18/16 15:00 23:00 07:00 Intake Total 1000 ml 1800 ml Output Total 525 ml Balance -525 ml 1000 ml 1800 ml LOR FONSECA MD Dec 18, 2016 10:00
[2016-12-18 10:41] VITALS: BP 135/79
--- NOTE | 2016-12-18 12:27 | PDOC ---
Subjective: Subjective: Still has pain. Family concerned about fever. Objective: Vital Signs: Vital Signs Date Time Temp Pulse Resp B/P Pulse Ox O2 Delivery O2 Flow Rate FiO2 12/18/16 10:41 99.1 85 19 135/79 94 Room Air 99.1 Labs: Laboratory Tests Test 12/18/16 04:40 White Blood Count 11.9x10^3/uL Red Blood Count 4.65x10^6/uL Hemoglobin 14.9g/dL Hematocrit 45.1% Mean Corpuscular Volume 97fL Mean Corpuscular Hemoglobin 32pg Mean Corpuscular Hemoglobin Concent 33g/dL Red Cell Distribution Width 13.4% Platelet Count 123x10^3/uL Neutrophils (%) (Auto) 83% Lymphocytes (%) (Auto) 12% Monocytes (%) (Auto) 5% Eosinophils (%) (Auto) 0% Basophils (%) (Auto) 0% Neutrophils # (Auto) 9.8x10^3uL Lymphocytes # (Auto) 1.4x10^3/uL Monocytes # (Auto) 0.6x10^3/uL Eosinophils # (Auto) 0.0x10^3/uL Basophils # (Auto) 0.0x10^3/uL Sodium Level 140mmol/L Potassium Level 4.1mmol/L Chloride Level 104mmol/L Carbon Dioxide Level 26mmol/L Anion Gap 10 Blood Urea Nitrogen 10mg/dL Creatinine 0.7mg/dL Estimated GFR (Cockcroft-Gault) 115.0 BUN/Creatinine Ratio 14 Glucose Level 121mg/dL Calcium Level 8.7mg/dL Total Bilirubin 1.3mg/dL Aspartate Amino Transf (AST/SGOT) 40U/L Alanine Aminotransferase (ALT/SGPT) 83U/L Alkaline Phosphatase 71U/L Total Protein 7.0g/dL Albumin 3.6g/dL Albumin/Globulin Ratio 1.1 Lipase 1892U/L PE: GEN: NAD LUNGS: clear anteriorly HEART: RRR ABD: BS quiet, still quite tender periumbilical area NEURO/PSYCH: A & O 3 A/P: Pancreatitis -periumbilical pain persists -lipase >04036 on admission - now 1892, WBC improved (11.9), Tmax 100 -on CT: fluid and edema around pancreatic tail w/ gallstone -surgery following, recs for cholecystectomy when acute attack resolved -- Try sips of water and ice chips. RUPERTO GORDILLO Dec 18, 2016 12:27
[2016-12-18] MEDS: MORPHINE SULFATE 4 MG/ML DISP.SYRIN. IV PRN (13:33)
[2016-12-18 14:35] VITALS: BP 138/79
[2016-12-18 19:00] VITALS: BP 142/79
[2016-12-18 22:49] VITALS: BP 124/74
[2016-12-19] MEDS: IV NORMAL SALINE 1000ML BAG 1,000 ML IV SCH ×3 (01:12→17:21)
[2016-12-19 02:37] VITALS: BP 120/63
[2016-12-19] MEDS: MORPHINE SULFATE 4 MG/ML DISP.SYRIN. IV PRN (05:51)
[2016-12-19] MEDS: ONDANSETRON PF 4 MG/2 ML VIAL. IV PRN ×2 (05:51→20:18)
[2016-12-19 07:00] VITALS: BP 129/75
[2016-12-19 08:57] LABS: BASO % 0 % (0-3); EOS % 0 % (0-3); HEMATOCRIT 42.7 % (39.0-53.0); HEMOGLOBIN 14.2 g/dL (13.0-17.5); LYMPH # 1.4 x10^3/uL (1.0-4.8); LYMPH % 10 % (24-48); MEAN CORPUSCULAR HEMOGLOBIN 32 pg (25-35); MEAN CORPUSCULAR HGB CONC 33 g/dL (31-37); MEAN CORPUSCULAR VOLUME 96 fL (79-100); MONO % 7 % (0-9); NEUT % 83 % (31-73); PLATELET COUNT 112 x10^3/uL (140-400); RED BLOOD COUNT 4.46 x10^6/uL (4.30-5.70); RED CELL DISTRIBUTION WIDTH 13.3 % (11.5-14.5); WHITE BLOOD COUNT 13.7 x10^3/uL (4.0-11.0)
[2016-12-19 09:03] LABS: CALCIUM 8.7 mg/dL (8.5-10.1); CREATININE 0.7 mg/dL (0.7-1.3)
--- NOTE | 2016-12-19 10:21 | PDOC ---
PROGRESS NOTES Chief Complaint Chief Complaint cc: abdominal pain A/P Acute pancreatitis, Possible gall stone related. fevers Plan Lipase improving continue iv hydration GI and GS following Meropenem clinically improving, possible cholecystectomy in AM Vitals Vitals Vital Signs Date Time Temp Pulse Resp B/P Pulse Ox O2 Delivery O2 Flow Rate FiO2 12/19/16 07:00 98.4 72 19 129/75 97 Room Air 98.4 Physical Exam General: Alert, Oriented X3, Cooperative, No acute distress Heart: Regular rate, Normal S1, Normal S2, No murmurs Lungs: Clear, Wheezing Abdomen: Normal bowel sounds, Soft, No tenderness, Other Extremities: No clubbing, No cyanosis Skin: No rashes, No breakdown Labs LABS Laboratory Tests Test 12/19/16 08:41 White Blood Count 13.7x10^3/uL (4.0-11.0) Red Blood Count 4.46x10^6/uL (4.30-5.70) Hemoglobin 14.2g/dL (13.0-17.5) Hematocrit 42.7% (39.0-53.0) Mean Corpuscular Volume 96fL (79-100) Mean Corpuscular Hemoglobin 32pg (25-35) Mean Corpuscular Hemoglobin Concent 33g/dL (31-37) Red Cell Distribution Width 13.3% (11.5-14.5) Platelet Count 112x10^3/uL (140-400) Neutrophils (%) (Auto) 83% (31-73) Lymphocytes (%) (Auto) 10% (24-48) Monocytes (%) (Auto) 7% (0-9) Eosinophils (%) (Auto) 0% (0-3) Basophils (%) (Auto) 0% (0-3) Neutrophils # (Auto) 11.3x10^3uL (1.8-7.7) Lymphocytes # (Auto) 1.4x10^3/uL (1.0-4.8) Monocytes # (Auto) 1.0x10^3/uL (0.0-1.1) Eosinophils # (Auto) 0.0x10^3/uL (0.0-0.7) Basophils # (Auto) 0.0x10^3/uL (0.0-0.2) Sodium Level 139mmol/L (136-145) Potassium Level 4.0mmol/L (3.5-5.1) Chloride Level 102mmol/L (98-107) Carbon Dioxide Level 28mmol/L (21-32) Anion Gap 9 (6-14) Blood Urea Nitrogen 8mg/dL (8-26) Creatinine 0.7mg/dL (0.7-1.3) Estimated GFR (Cockcroft-Gault) 115.0 Glucose Level 124mg/dL (70-99) Calcium Level 8.7mg/dL (8.5-10.1) Lipase 347U/L (73-393) Assessment and Plan Assessmemt and Plan Problems Medical Problems: (1) Pancreatitis Status: Acute Problems: Comment Review of Relevant I have reviewed the following items brayan (where applicable) has been applied. Labs Laboratory Tests Test 12/18/16 04:40 12/19/16 08:41 White Blood Count 11.9x10^3/uL (4.0-11.0) 13.7x10^3/uL (4.0-11.0) Red Blood Count 4.65x10^6/uL (4.30-5.70) 4.46x10^6/uL (4.30-5.70) Hemoglobin 14.9g/dL (13.0-17.5) 14.2g/dL (13.0-17.5) Hematocrit 45.1% (39.0-53.0) 42.7% (39.0-53.0) Mean Corpuscular Volume 97fL (79-100) 96fL (79-100) Mean Corpuscular Hemoglobin 32pg (25-35) 32pg (25-35) Mean Corpuscular Hemoglobin Concent 33g/dL (31-37) 33g/dL (31-37) Red Cell Distribution Width 13.4% (11.5-14.5) 13.3% (11.5-14.5) Platelet Count 123x10^3/uL (140-400) 112x10^3/uL (140-400) Neutrophils (%) (Auto) 83% (31-73) 83% (31-73) Lymphocytes (%) (Auto) 12% (24-48) 10% (24-48) Monocytes (%) (Auto) 5% (0-9) 7% (0-9) Eosinophils (%) (Auto) 0% (0-3) 0% (0-3) Basophils (%) (Auto) 0% (0-3) 0% (0-3) Neutrophils # (Auto) 9.8x10^3uL (1.8-7.7) 11.3x10^3uL (1.8-7.7) Lymphocytes # (Auto) 1.4x10^3/uL (1.0-4.8) 1.4x10^3/uL (1.0-4.8) Monocytes # (Auto) 0.6x10^3/uL (0.0-1.1) 1.0x10^3/uL (0.0-1.1) Eosinophils # (Auto) 0.0x10^3/uL (0.0-0.7) 0.0x10^3/uL (0.0-0.7) Basophils # (Auto) 0.0x10^3/uL (0.0-0.2) 0.0x10^3/uL (0.0-0.2) Sodium Level 140mmol/L (136-145) 139mmol/L (136-145) Potassium Level 4.1mmol/L (3.5-5.1) 4.0mmol/L (3.5-5.1) Chloride Level 104mmol/L (98-107) 102mmol/L (98-107) Carbon Dioxide Level 26mmol/L (21-32) 28mmol/L (21-32) Anion Gap 10 (6-14) 9 (6-14) Blood Urea Nitrogen 10mg/dL (8-26) 8mg/dL (8-26) Creatinine 0.7mg/dL (0.7-1.3) 0.7mg/dL (0.7-1.3) Estimated GFR (Cockcroft-Gault) 115.0 115.0 BUN/Creatinine Ratio 14 (6-20) Glucose Level 121mg/dL (70-99) 124mg/dL (70-99) Calcium Level 8.7mg/dL (8.5-10.1) 8.7mg/dL (8.5-10.1) Total Bilirubin 1.3mg/dL (0.2-1.0) Aspartate Amino Transf (AST/SGOT) 40U/L (15-37) Alanine Aminotransferase (ALT/SGPT) 83U/L (16-63) Alkaline Phosphatase 71U/L (46-116) Total Protein 7.0g/dL (6.4-8.2) Albumin 3.6g/dL (3.4-5.0) Albumin/Globulin Ratio 1.1 (1.0-1.7) Lipase 1892U/L (73-393) 347U/L (73-393) Laboratory Tests Test 12/19/16 08:41 White Blood Count 13.7x10^3/uL (4.0-11.0) Red Blood Count 4.46x10^6/uL (4.30-5.70) Hemoglobin 14.2g/dL (13.0-17.5) Hematocrit 42.7% (39.0-53.0) Mean Corpuscular Volume 96fL (79-100) Mean Corpuscular Hemoglobin 32pg (25-35) Mean Corpuscular Hemoglobin Concent 33g/dL (31-37) Red Cell Distribution Width 13.3% (11.5-14.5) Platelet Count 112x10^3/uL (140-400) Neutrophils (%) (Auto) 83% (31-73) Lymphocytes (%) (Auto) 10% (24-48) Monocytes (%) (Auto) 7% (0-9) Eosinophils (%) (Auto) 0% (0-3) Basophils (%) (Auto) 0% (0-3) Neutrophils # (Auto) 11.3x10^3uL (1.8-7.7) Lymphocytes # (Auto) 1.4x10^3/uL (1.0-4.8) Monocytes # (Auto) 1.0x10^3/uL (0.0-1.1) Eosinophils # (Auto) 0.0x10^3/uL (0.0-0.7) Basophils # (Auto) 0.0x10^3/uL (0.0-0.2) Sodium Level 139mmol/L (136-145) Potassium Level 4.0mmol/L (3.5-5.1) Chloride Level 102mmol/L (98-107) Carbon Dioxide Level 28mmol/L (21-32) Anion Gap 9 (6-14) Blood Urea Nitrogen 8mg/dL (8-26) Creatinine 0.7mg/dL (0.7-1.3) Estimated GFR (Cockcroft-Gault) 115.0 Glucose Level 124mg/dL (70-99) Calcium Level 8.7mg/dL (8.5-10.1) Lipase 347U/L (73-393) Medications Current Medications Sodium Chloride (Iv Sodium Chloride 0.9% 1000ml Bag) 1,000 ml @ 1,000 mls/hr Q1H IV Last administered on 12/17/16 01:55; Start 12/17/16 at 01:15; Stop at 02:14; Status DC Ondansetron HCl (Zofran) 4 mg 1X ONCE IV Last administered on 12/17/16 01:55 ; Start 12/17/16 at 01:15; Stop 12/17/16 at 01:18; Status DC Famotidine (Pepcid) 20 mg 1X ONCE IVP Last administered on 12/17/16 01:55; Start 12/17/16 at 01:15; Stop 12/17/16 at 01:18; Status DC Morphine Sulfate 4 mg 1X ONCE IV Last administered on 12/17/16 01:55; Start 12/17/16 at 01:15; Stop 12/17/16 at 01:18; Status DC Iohexol (Omnipaque 300 Mg/ml) 75 ml 1X ONCE IV Last administered on 12/17/16 03:22; Start 12/17/16 at 01:30; Stop 12/17/16 at 01:31; Status DC Info (Do NOT chart on this entry -- for MONITORING) 1 each PRN DAILY PRN MC SEE COMMENTS; Start 12/17/16 at 01:30; Stop 12/19/16 at 01:29; Status DC Morphine Sulfate 4 mg 1X ONCE IV Last administered on 12/17/16 03:39; Start 12/17/16 at 03:15; Stop 12/17/16 at 03:16; Status DC Ondansetron HCl (Zofran) 4 mg PRN Q8HRS PRN IV NAUSEA/VOMITING Last administered on 12/17/16 19:28; Start 12/17/16 at 04:30; Stop 12/18/16 at 04:29 ; Status DC Morphine Sulfate 4 mg 4 mg PRN Q1HR PRN IV PAIN Last administered on 12/19/16 05:51; Start 12/17/16 at 04:30 Sodium Chloride (Iv Sodium Chloride 0.9% 1000ml Bag) 1,000 ml @ 125 mls/hr Q8H IV Last administered on 12/17/16 08:33; Start 12/17/16 at 04:30; Stop at 09:42; Status DC Acetaminophen (Tylenol) 650 mg PRN Q4HRS PRN PO FEVER; Start 12/17/16 at 04:30 ; Stop 12/18/16 at 04:29; Status DC Acetaminophen (Tylenol) 325 mg PRN Q6HRS PRN PO MILD PAIN / TEMP; Start at 09:45 Acetaminophen/ Hydrocodone Bitart (Lortab 5/325) 1 tab PRN Q6HRS PRN PO MODERATE TO SEVERE PAIN Last administered on 12/18/16 19:23; Start 12/17/16 at 09:45 Hydralazine HCl (Apresoline) 10 mg PRN Q4HRS PRN IVP ELEVATED BP, SEE COMMENTS ; Start 12/17/16 at 09:45 Ondansetron HCl (Zofran) 4 mg PRN Q8HRS PRN IV NAUSEA/VOMITING Last administered on 12/19/16 05:51; Start 12/17/16 at 09:45 Albuterol Sulfate 2.5 mg 2.5 mg PRN Q4HRS PRN NEB SHORTNESS OF BREATH; Start at 09:45 Sodium Chloride (Iv Sodium Chloride 0.9% 1000ml Bag) 1,000 ml @ 150 mls/hr Q6H40M IV Last administered on 12/19/16 08:32; Start 12/17/16 at 09:41; Stop at 09:40; Status DC Active Scripts Active Reported [no home medications] Vitals/I & O Vital Sign - Last 24 Hours 12/18/16 12/18/16 12/18/16 12/18/16 10:41 13:33 14:35 19:00 Temp 99.1 100.0 98.9 99.1 100.0 98.9 Pulse 85 81 78 Resp B/P 135/79 138/79 142/79 Pulse Ox 94 94 94 O2 Delivery Room Air Room Air Room Air 12/18/16 12/18/16 12/18/16 12/18/16 19:23 20:00 20:41 22:49 Temp 98.5 98.5 Pulse 76 Resp B/P 124/74 Pulse Ox 94 94 96 O2 Delivery Room Air Room Air Room Air Room Air 12/19/16 12/19/16 12/19/16 12/19/16 02:37 05:51 06:23 07:00 Temp 99.7 98.4 99.7 98.4 Pulse 78 72 Resp B/P 120/63 129/75 Pulse Ox 95 97 O2 Delivery Room Air Room Air Room Air Room Air Intake and Output 12/18/16 12/18/16 12/19/16 15:00 23:00 07:00 Intake Total 1000 ml 0 ml 4036 ml Output Total 1000 ml Balance 1000 ml -1000 ml 4036 ml LOR FONSECA MD Dec 19, 2016 10:21
--- NOTE | 2016-12-19 10:24 | PDOC ---
Subjective: Subjective: No abd pain today, but instead of bilateral lower back pain. Urinating normally. No n/v, would like to eat. Objective: Vital Signs: Vital Signs Date Time Temp Pulse Resp B/P Pulse Ox O2 Delivery O2 Flow Rate FiO2 12/19/16 07:00 98.4 72 19 129/75 97 Room Air 98.4 Labs: Laboratory Tests Test 12/19/16 08:41 White Blood Count 13.7x10^3/uL Red Blood Count 4.46x10^6/uL Hemoglobin 14.2g/dL Hematocrit 42.7% Mean Corpuscular Volume 96fL Mean Corpuscular Hemoglobin 32pg Mean Corpuscular Hemoglobin Concent 33g/dL Red Cell Distribution Width 13.3% Platelet Count 112x10^3/uL Neutrophils (%) (Auto) 83% Lymphocytes (%) (Auto) 10% Monocytes (%) (Auto) 7% Eosinophils (%) (Auto) 0% Basophils (%) (Auto) 0% Neutrophils # (Auto) 11.3x10^3uL Lymphocytes # (Auto) 1.4x10^3/uL Monocytes # (Auto) 1.0x10^3/uL Eosinophils # (Auto) 0.0x10^3/uL Basophils # (Auto) 0.0x10^3/uL Sodium Level 139mmol/L Potassium Level 4.0mmol/L Chloride Level 102mmol/L Carbon Dioxide Level 28mmol/L Anion Gap 9 Blood Urea Nitrogen 8mg/dL Creatinine 0.7mg/dL Estimated GFR (Cockcroft-Gault) 115.0 Glucose Level 124mg/dL Calcium Level 8.7mg/dL Lipase 347U/L PE: GEN: NAD LUNGS: CTAB HEART: RRR ABD: NABS, S/ND/NT NEURO/PSYCH: A & O 3 A/P: Pancreatitis -periumbilical pain resolved -lipase >65183 on admission to 1892 to 347, WBC increased (13.97), Tmax 100 - ID asked to see, d/w Dr. Syed earlier -on CT: fluid and edema around pancreatic tail w/ gallstone -surgery following, recs for cholecystectomy when acute attack resolved -- Lipase and symptoms improved. Try MILTON maria. D/w RN. Recheck LFTs. RUPERTO GORDILLO Dec 19, 2016 10:24
--- NOTE | 2016-12-19 10:40 | PDOC ---
Infectious Disease Note ROS ROS GEN: Denies fevers, chills, sweats HEENT: Denies blurred vision, sore throat CV: Denies chest pain RESP: Denies shortness of air, cough GI: Denies n/v/d NEURO: Denies confusion, dizziness MSK: Denies weakness, joint pain/swelling Vital Sign Vital Signs Vital Signs Date Time Temp Pulse Resp B/P Pulse Ox O2 Delivery O2 Flow Rate FiO2 12/19/16 07:00 98.4 72 19 129/75 97 Room Air 98.4 Physical Exam PHYSICAL EXAM GENERAL: NAD, Alert HEENT: PERRL, OC/OP NECK: Supple, no JVD, no LN LUNGS: Clear HEART: S1S2, no gallop, no murmur ABD: Soft, NT, no organomegaly, no rebound EXT: No edema, no cyanosis [employer]: Alert, oriented x 3, no focal neurologic deficit SKIN: No rash IV: ok Labs Lab Laboratory Tests Test 12/19/16 08:41 White Blood Count 13.7x10^3/uL (4.0-11.0) Red Blood Count 4.46x10^6/uL (4.30-5.70) Hemoglobin 14.2g/dL (13.0-17.5) Hematocrit 42.7% (39.0-53.0) Mean Corpuscular Volume 96fL (79-100) Mean Corpuscular Hemoglobin 32pg (25-35) Mean Corpuscular Hemoglobin Concent 33g/dL (31-37) Red Cell Distribution Width 13.3% (11.5-14.5) Platelet Count 112x10^3/uL (140-400) Neutrophils (%) (Auto) 83% (31-73) Lymphocytes (%) (Auto) 10% (24-48) Monocytes (%) (Auto) 7% (0-9) Eosinophils (%) (Auto) 0% (0-3) Basophils (%) (Auto) 0% (0-3) Neutrophils # (Auto) 11.3x10^3uL (1.8-7.7) Lymphocytes # (Auto) 1.4x10^3/uL (1.0-4.8) Monocytes # (Auto) 1.0x10^3/uL (0.0-1.1) Eosinophils # (Auto) 0.0x10^3/uL (0.0-0.7) Basophils # (Auto) 0.0x10^3/uL (0.0-0.2) Sodium Level 139mmol/L (136-145) Potassium Level 4.0mmol/L (3.5-5.1) Chloride Level 102mmol/L (98-107) Carbon Dioxide Level 28mmol/L (21-32) Anion Gap 9 (6-14) Blood Urea Nitrogen 8mg/dL (8-26) Creatinine 0.7mg/dL (0.7-1.3) Estimated GFR (Cockcroft-Gault) 115.0 Glucose Level 124mg/dL (70-99) Calcium Level 8.7mg/dL (8.5-10.1) Lipase 347U/L (73-393) Objective Assessment Leukocytosis Pancreatitis Fever Gallstone Plan Plan of Care Has increasing back pain today and mild increase in WBC - will begin Meropenem F/u labs and response. I did order labs this am F/u LFTS ordered this am Labs in am Await further surgical F/u D/w family Thank you # [id number] DAVID WHITAKER MD Dec 19, 2016 10:40
[2016-12-19 11:00] VITALS: BP 139/75
[2016-12-19] MEDS: MEROPENEM 1 GM in IV NORMAL SALINE 100ML 100 ML IV SCH ×2 (11:45→21:18)
[2016-12-19] MEDS: HYDROCODONE/APAP 5/325MG TABLET. PO PRN ×2 (11:45→20:17)
[2016-12-19 13:17] LABS: ALBUMIN 3.3 g/dL (3.4-5.0); DIRECT BILIRUBIN 0.2 mg/dL (0.0-0.2); TOTAL PROTEIN 7.2 g/dL (6.4-8.2)
--- NOTE | 2016-12-19 13:59 | PDOC ---
SURGICAL PROGRESS NOTE Subjective Pt feels better Vital Signs Vital Signs Date Time Temp Pulse Resp B/P Pulse Ox O2 Delivery O2 Flow Rate FiO2 12/19/16 13:45 Room Air 12/19/16 11:00 99.5 72 19 139/75 97 99.5 I&O Intake and Output 12/19/16 07:00 Intake Total 5036 ml Output Total 1000 ml Balance 4036 ml Intake Oral 200 ml IV Total 2000 ml Other 2836 ml Output Urine Total 1000 ml # Voids 1 General: Alert, Oriented X3, Cooperative, No acute distress Abdomen: Soft, No tenderness Labs Laboratory Tests Test 12/18/16 04:40 12/19/16 08:41 White Blood Count 11.9x10^3/uL (4.0-11.0) 13.7x10^3/uL (4.0-11.0) Red Blood Count 4.65x10^6/uL (4.30-5.70) 4.46x10^6/uL (4.30-5.70) Hemoglobin 14.9g/dL (13.0-17.5) 14.2g/dL (13.0-17.5) Hematocrit 45.1% (39.0-53.0) 42.7% (39.0-53.0) Mean Corpuscular Volume 97fL (79-100) 96fL (79-100) Mean Corpuscular Hemoglobin 32pg (25-35) 32pg (25-35) Mean Corpuscular Hemoglobin Concent 33g/dL (31-37) 33g/dL (31-37) Red Cell Distribution Width 13.4% (11.5-14.5) 13.3% (11.5-14.5) Platelet Count 123x10^3/uL (140-400) 112x10^3/uL (140-400) Neutrophils (%) (Auto) 83% (31-73) 83% (31-73) Lymphocytes (%) (Auto) 12% (24-48) 10% (24-48) Monocytes (%) (Auto) 5% (0-9) 7% (0-9) Eosinophils (%) (Auto) 0% (0-3) 0% (0-3) Basophils (%) (Auto) 0% (0-3) 0% (0-3) Neutrophils # (Auto) 9.8x10^3uL (1.8-7.7) 11.3x10^3uL (1.8-7.7) Lymphocytes # (Auto) 1.4x10^3/uL (1.0-4.8) 1.4x10^3/uL (1.0-4.8) Monocytes # (Auto) 0.6x10^3/uL (0.0-1.1) 1.0x10^3/uL (0.0-1.1) Eosinophils # (Auto) 0.0x10^3/uL (0.0-0.7) 0.0x10^3/uL (0.0-0.7) Basophils # (Auto) 0.0x10^3/uL (0.0-0.2) 0.0x10^3/uL (0.0-0.2) Sodium Level 140mmol/L (136-145) 139mmol/L (136-145) Potassium Level 4.1mmol/L (3.5-5.1) 4.0mmol/L (3.5-5.1) Chloride Level 104mmol/L (98-107) 102mmol/L (98-107) Carbon Dioxide Level 26mmol/L (21-32) 28mmol/L (21-32) Anion Gap 10 (6-14) 9 (6-14) Blood Urea Nitrogen 10mg/dL (8-26) 8mg/dL (8-26) Creatinine 0.7mg/dL (0.7-1.3) 0.7mg/dL (0.7-1.3) Estimated GFR (Cockcroft-Gault) 115.0 115.0 BUN/Creatinine Ratio 14 (6-20) Glucose Level 121mg/dL (70-99) 124mg/dL (70-99) Calcium Level 8.7mg/dL (8.5-10.1) 8.7mg/dL (8.5-10.1) Total Bilirubin 1.3mg/dL (0.2-1.0) 1.0mg/dL (0.2-1.0) Aspartate Amino Transf (AST/SGOT) 40U/L (15-37) 24U/L (15-37) Alanine Aminotransferase (ALT/SGPT) 83U/L (16-63) 54U/L (16-63) Alkaline Phosphatase 71U/L (46-116) 68U/L (46-116) Total Protein 7.0g/dL (6.4-8.2) 7.2g/dL (6.4-8.2) Albumin 3.6g/dL (3.4-5.0) 3.3g/dL (3.4-5.0) Albumin/Globulin Ratio 1.1 (1.0-1.7) Lipase 1892U/L (73-393) 347U/L (73-393) Direct Bilirubin 0.2mg/dL (0.0-0.2) Laboratory Tests Test 12/19/16 08:41 White Blood Count 13.7x10^3/uL (4.0-11.0) Red Blood Count 4.46x10^6/uL (4.30-5.70) Hemoglobin 14.2g/dL (13.0-17.5) Hematocrit 42.7% (39.0-53.0) Mean Corpuscular Volume 96fL (79-100) Mean Corpuscular Hemoglobin 32pg (25-35) Mean Corpuscular Hemoglobin Concent 33g/dL (31-37) Red Cell Distribution Width 13.3% (11.5-14.5) Platelet Count 112x10^3/uL (140-400) Neutrophils (%) (Auto) 83% (31-73) Lymphocytes (%) (Auto) 10% (24-48) Monocytes (%) (Auto) 7% (0-9) Eosinophils (%) (Auto) 0% (0-3) Basophils (%) (Auto) 0% (0-3) Neutrophils # (Auto) 11.3x10^3uL (1.8-7.7) Lymphocytes # (Auto) 1.4x10^3/uL (1.0-4.8) Monocytes # (Auto) 1.0x10^3/uL (0.0-1.1) Eosinophils # (Auto) 0.0x10^3/uL (0.0-0.7) Basophils # (Auto) 0.0x10^3/uL (0.0-0.2) Sodium Level 139mmol/L (136-145) Potassium Level 4.0mmol/L (3.5-5.1) Chloride Level 102mmol/L (98-107) Carbon Dioxide Level 28mmol/L (21-32) Anion Gap 9 (6-14) Blood Urea Nitrogen 8mg/dL (8-26) Creatinine 0.7mg/dL (0.7-1.3) Estimated GFR (Cockcroft-Gault) 115.0 Glucose Level 124mg/dL (70-99) Calcium Level 8.7mg/dL (8.5-10.1) Total Bilirubin 1.0mg/dL (0.2-1.0) Direct Bilirubin 0.2mg/dL (0.0-0.2) Aspartate Amino Transf (AST/SGOT) 24U/L (15-37) Alanine Aminotransferase (ALT/SGPT) 54U/L (16-63) Alkaline Phosphatase 68U/L (46-116) Total Protein 7.2g/dL (6.4-8.2) Albumin 3.3g/dL (3.4-5.0) Lipase 347U/L (73-393) Problem List Problems Medical Problems: (1) Pancreatitis Status: Acute Assessment/Plan plan lap indio with grams in AM R/B/A d/w pt and pt's Problems: IVANIA PRO MD Dec 19, 2016 13:59
[2016-12-19] MEDS ORDERED: CEFAZOLIN 2GM PREMIX 50 ML IV SCH (14:00)
[2016-12-19 15:00] VITALS: BP 129/74
[2016-12-19 19:00] VITALS: BP 129/70
[2016-12-19 23:00] VITALS: BP 128/67
[2016-12-20] VITALS (13 sets, daily range): BP systolic 98–157; BP diastolic 52–89
[2016-12-20] MEDS: MEROPENEM 1 GM in IV NORMAL SALINE 100ML 100 ML IV SCH ×3 (05:35→21:30)
[2016-12-20] MEDS: IV NORMAL SALINE 1000ML BAG 1,000 ML IV SCH ×2 (05:35→17:10)
[2016-12-20 05:45] LABS: BASO % 0 % (0-3); EOS % 0 % (0-3); HEMATOCRIT 40.2 % (39.0-53.0); HEMOGLOBIN 13.7 g/dL (13.0-17.5); LYMPH % 9 % (24-48); MEAN CORPUSCULAR HEMOGLOBIN 32 pg (25-35); MEAN CORPUSCULAR HGB CONC 34 g/dL (31-37); MEAN CORPUSCULAR VOLUME 93 fL (79-100); MONO % 9 % (0-9); NEUT % 81 % (31-73); PLATELET COUNT 133 x10^3/uL (140-400); RED BLOOD COUNT 4.31 x10^6/uL (4.30-5.70); RED CELL DISTRIBUTION WIDTH 12.9 % (11.5-14.5); WHITE BLOOD COUNT 11.1 x10^3/uL (4.0-11.0)
[2016-12-20] MEDS ORDERED: HEPARIN 1,000 UNIT in IV NORMAL SALINE 1,000 ML for SURG PERIOP IRR ONE (06:00)
--- NOTE | 2016-12-20 06:14 | CONS ---
DATE OF CONSULTATION: 12/19/2016 PATIENT'S ROOM: 538. REQUESTING PHYSICIAN: Dr. Whaley. REASON FOR CONSULTATION: Pancreatitis and fever. HISTORY OF PRESENT ILLNESS: The patient is a pleasant 61-year-old gentleman, who presented to [facility] with periumbilical pain after he ate soup. He had increasing pain. He had vomiting and felt so bad that he presented to [facility] on the . On arrival, his white count 15.3. He has been running low grade temperatures up to 100 degrees orally. He underwent a CT scan of the abdomen and pelvis, which showed acute pancreatitis and cholelithiasis. The gallbladder wall not thickened. There was no mention of any ductal dilatation. He did have a lipase of 27,860 on arrival, AST 136 and ALT of 141. Because of the low-grade temperatures, I was consulted yesterday. I did review the case with his nurse Mel Mcconnell. I reviewed the CAT scan with her. I reviewed his white blood cell count that improved to 11.9 and clinically he was doing well. At that time, it did not institute any antimicrobial therapy. This morning, the patient states he is feeling better, although he is having some lower back pain, is not necessarily release when he get up and walks around. He still has occasional discomfort in his abdomen, if he swallows too much ice. He has low grade fevers. No headache, no chest pain. He has not had a bowel movement since prior to admission. No dysuria, frequency or urgency. PAST MEDICAL HISTORY: Positive for previous constipation, right inguinal hernia repair and hemorrhoidectomy. REVIEW OF SYSTEMS: Otherwise negative except for mentioned above. ALLERGIES: No known antibiotic allergies. SOCIAL HISTORY: Quit smoking 30 years ago. Occasional alcohol. FAMILY HISTORY: Noncontributory. CURRENT MEDICATIONS: Include Tylenol, Ventolin, hydrocodone and hydralazine as needed. PHYSICAL EXAMINATION: VITAL SIGNS: Current temperature 98.4, pulse 72, respirations rate 19, blood pressure 129/75, satting 97% on room air, previous T-max 99.7. CONSTITUTIONAL: He is pleasant, cooperative, in no acute distress. He is sitting on the side of the bed. HEENT: Pupils are equal and reactive. Normal conjunctivae. Oral cavity, pharynx is clear. NECK: Supple, no JVD. LUNGS: Clear to auscultation bilaterally. HEART: S1, S2. ABDOMEN: Obese, soft, nondistended, nontender. There is no guarding or rebound. He complains of a little bit of back discomfort with palpation. EXTREMITIES: No clubbing, cyanosis. He has ____ in place. He has trace lower extremity edema. SKIN: Warm to touch without signs of rash. NEUROLOGIC: He is nonfocal, moves all extremities. PSYCHIATRIC: Intact. Affect is pleasant. LABORATORY DATA: White count 13.7, hemoglobin 14.2, platelets of 112, 83 segs, 10 lymphs. Creatinine 0.7, glucose 124. Lipase is 347. Urinalysis is clean at presentation. CT scan reviewed in history of present illness. IMPRESSION: 1. Leukocytosis. 2. Pancreatitis. 3. Fever. 4. Gallstone. RECOMMENDATIONS: There is no indication for antibiotics with pancreatitis side from necrosis of the pancreas, which was not evident on the CAT scan. Additionally, his gallbladder was not inflamed and there is no apparent dictation of any ductal dilatation as if he had passed stone; however, his white blood cell count did increase today and he is complaining of more lower abdominal pain. Therefore, we will begin meropenem. LFTs were ordered this morning, but are currently pending. I did order CBC, BMP and lipase this morning and will follow up the CBC in the morning to see if the antibiotics have any effect. We will also follow up the CMP in the morning and await further surgical evaluation as they are discussing removing his gallbladder any acute processes ____. This was discussed with his family. Thank you for allowing us to participate in the patient's care. Should you have any questions, please do not hesitate to contact me. DAVID WHITAKER MD DR: LUDMILA/geneva JOB#: [id number] / [id number]
[2016-12-20 06:15] LABS: ALBUMIN/GLOBULIN RATIO 0.8 (1.0-1.7); CALCIUM 8.6 mg/dL (8.5-10.1); CREATININE 0.6 mg/dL (0.7-1.3); GFR 137.4; POTASSIUM 3.7 mmol/L (3.5-5.1); TOTAL BILIRUBIN 0.9 mg/dL (0.2-1.0); TOTAL PROTEIN 6.9 g/dL (6.4-8.2)
[2016-12-20] MEDS ORDERED: ONDANSETRON PF 4 MG/2 ML VIAL. IV PRN ×2 (07:00→11:15)
[2016-12-20] MEDS ORDERED: FENTANYL PF 100 MCG/2 ML VIAL. IV PRN ×2 (07:00)
[2016-12-20] MEDS ORDERED: IV RINGERS,LACTATED 1000ML 1,000 ML IV SCH (07:00)
[2016-12-20] MEDS ORDERED: LIDOCAINE 1% 1 ML SYRINGE. ID PRN (07:00)
[2016-12-20] MEDS ORDERED: HYDROMORPHONE 2 MG/ML VIAL. IV PRN (07:00)
[2016-12-20] MEDS ORDERED: MORPHINE SULFATE 2 MG/ML DISP.SYRIN. IV PRN (07:00)
[2016-12-20] MEDS ORDERED: PROCHLORPERAZINE 10 MG/2 ML VIAL. IV PRN (07:00)
[2016-12-20] MEDS: ONDANSETRON PF 4 MG/2 ML VIAL. IV PRN (07:56)
[2016-12-20] MEDS: MORPHINE SULFATE 4 MG/ML DISP.SYRIN. IV PRN (07:59)
[2016-12-20] MEDS ORDERED: ROCURONIUM 50 MG/5 ML VIAL. ONE (09:30)
[2016-12-20] MEDS ORDERED: MIDAZOLAM HCL 2 MG/2 ML VIAL. ONE (09:30)
[2016-12-20] MEDS ORDERED: FENTANYL PF 250 MCG/5 ML VIAL. ONE (09:30)
[2016-12-20] MEDS ORDERED: PROPOFOL 20 ML IV ONE (09:30)
[2016-12-20] MEDS ORDERED: SEVOFLURANE 31 TO 60 MINUTES. IH ONE (09:30)
[2016-12-20] MEDS ORDERED: ONDANSETRON PF 4 MG/2 ML VIAL. ONE ×2 (09:31→10:59)
[2016-12-20] MEDS ORDERED: FAMOTIDINE 20 MG/2 ML VIAL ONE (09:31)
[2016-12-20] MEDS ORDERED: LIDOCAINE 2% 100 MG/5 ML DISP.SYRIN. ONE (09:31)
--- NOTE | 2016-12-20 09:42 | PDOC ---
SURGICAL PROGRESS NOTE Subjective Pre-Op Note 61 yo M with gallstone pancreatitis pain has nearly resolved and pt feels much better, essie PO abd soft, min TTP TO OR for lap indio with grams R/B/A d/w pt Vital Signs Vital Signs Date Time Temp Pulse Resp B/P Pulse Ox O2 Delivery O2 Flow Rate FiO2 12/20/16 09:24 99.2 66 16 139/69 97 Room Air 99.2 I&O Intake and Output 12/20/16 07:00 Intake Total 2000 ml Balance 2000 ml Intake Oral 800 ml IV Total 1200 ml # Voids 5 Labs Laboratory Tests Test 12/19/16 08:41 12/20/16 05:30 White Blood Count 13.7x10^3/uL (4.0-11.0) 11.1x10^3/uL (4.0-11.0) Red Blood Count 4.46x10^6/uL (4.30-5.70) 4.31x10^6/uL (4.30-5.70) Hemoglobin 14.2g/dL (13.0-17.5) 13.7g/dL (13.0-17.5) Hematocrit 42.7% (39.0-53.0) 40.2% (39.0-53.0) Mean Corpuscular Volume 96fL (79-100) 93fL (79-100) Mean Corpuscular Hemoglobin 32pg (25-35) 32pg (25-35) Mean Corpuscular Hemoglobin Concent 33g/dL (31-37) 34g/dL (31-37) Red Cell Distribution Width 13.3% (11.5-14.5) 12.9% (11.5-14.5) Platelet Count 112x10^3/uL (140-400) 133x10^3/uL (140-400) Neutrophils (%) (Auto) 83% (31-73) 81% (31-73) Lymphocytes (%) (Auto) 10% (24-48) 9% (24-48) Monocytes (%) (Auto) 7% (0-9) 9% (0-9) Eosinophils (%) (Auto) 0% (0-3) 0% (0-3) Basophils (%) (Auto) 0% (0-3) 0% (0-3) Neutrophils # (Auto) 11.3x10^3uL (1.8-7.7) 9.0x10^3uL (1.8-7.7) Lymphocytes # (Auto) 1.4x10^3/uL (1.0-4.8) 1.0x10^3/uL (1.0-4.8) Monocytes # (Auto) 1.0x10^3/uL (0.0-1.1) 1.0x10^3/uL (0.0-1.1) Eosinophils # (Auto) 0.0x10^3/uL (0.0-0.7) 0.0x10^3/uL (0.0-0.7) Basophils # (Auto) 0.0x10^3/uL (0.0-0.2) 0.0x10^3/uL (0.0-0.2) Sodium Level 139mmol/L (136-145) 137mmol/L (136-145) Potassium Level 4.0mmol/L (3.5-5.1) 3.7mmol/L (3.5-5.1) Chloride Level 102mmol/L (98-107) 101mmol/L (98-107) Carbon Dioxide Level 28mmol/L (21-32) 29mmol/L (21-32) Anion Gap 9 (6-14) 7 (6-14) Blood Urea Nitrogen 8mg/dL (8-26) 8mg/dL (8-26) Creatinine 0.7mg/dL (0.7-1.3) 0.6mg/dL (0.7-1.3) Estimated GFR (Cockcroft-Gault) 115.0 137.4 Glucose Level 124mg/dL (70-99) 130mg/dL (70-99) Calcium Level 8.7mg/dL (8.5-10.1) 8.6mg/dL (8.5-10.1) Total Bilirubin 1.0mg/dL (0.2-1.0) 0.9mg/dL (0.2-1.0) Direct Bilirubin 0.2mg/dL (0.0-0.2) Aspartate Amino Transf (AST/SGOT) 24U/L (15-37) 19U/L (15-37) Alanine Aminotransferase (ALT/SGPT) 54U/L (16-63) 41U/L (16-63) Alkaline Phosphatase 68U/L (46-116) 66U/L (46-116) Total Protein 7.2g/dL (6.4-8.2) 6.9g/dL (6.4-8.2) Albumin 3.3g/dL (3.4-5.0) 3.0g/dL (3.4-5.0) Lipase 347U/L (73-393) BUN/Creatinine Ratio 13 (6-20) Albumin/Globulin Ratio 0.8 (1.0-1.7) Laboratory Tests Test 12/20/16 05:30 White Blood Count 11.1x10^3/uL (4.0-11.0) Red Blood Count 4.31x10^6/uL (4.30-5.70) Hemoglobin 13.7g/dL (13.0-17.5) Hematocrit 40.2% (39.0-53.0) Mean Corpuscular Volume 93fL (79-100) Mean Corpuscular Hemoglobin 32pg (25-35) Mean Corpuscular Hemoglobin Concent 34g/dL (31-37) Red Cell Distribution Width 12.9% (11.5-14.5) Platelet Count 133x10^3/uL (140-400) Neutrophils (%) (Auto) 81% (31-73) Lymphocytes (%) (Auto) 9% (24-48) Monocytes (%) (Auto) 9% (0-9) Eosinophils (%) (Auto) 0% (0-3) Basophils (%) (Auto) 0% (0-3) Neutrophils # (Auto) 9.0x10^3uL (1.8-7.7) Lymphocytes # (Auto) 1.0x10^3/uL (1.0-4.8) Monocytes # (Auto) 1.0x10^3/uL (0.0-1.1) Eosinophils # (Auto) 0.0x10^3/uL (0.0-0.7) Basophils # (Auto) 0.0x10^3/uL (0.0-0.2) Sodium Level 137mmol/L (136-145) Potassium Level 3.7mmol/L (3.5-5.1) Chloride Level 101mmol/L (98-107) Carbon Dioxide Level 29mmol/L (21-32) Anion Gap 7 (6-14) Blood Urea Nitrogen 8mg/dL (8-26) Creatinine 0.6mg/dL (0.7-1.3) Estimated GFR (Cockcroft-Gault) 137.4 BUN/Creatinine Ratio 13 (6-20) Glucose Level 130mg/dL (70-99) Calcium Level 8.6mg/dL (8.5-10.1) Total Bilirubin 0.9mg/dL (0.2-1.0) Aspartate Amino Transf (AST/SGOT) 19U/L (15-37) Alanine Aminotransferase (ALT/SGPT) 41U/L (16-63) Alkaline Phosphatase 66U/L (46-116) Total Protein 6.9g/dL (6.4-8.2) Albumin 3.0g/dL (3.4-5.0) Albumin/Globulin Ratio 0.8 (1.0-1.7) Problem List Problems Medical Problems: (1) Pancreatitis Status: Acute Problems: IVANIA PRO MD Dec 20, 2016 09:42
[2016-12-20] MEDS ORDERED: IOHEXOL 300 MG/ML 50 ML VIAL. ONE (09:56)
[2016-12-20] MEDS ORDERED: SURGICEL HEMOSTAT 2X3 EACH. ONE (09:56)
[2016-12-20] MEDS ORDERED: BUPIVAC MPF-EPI 0.5%-1:200000 30 ML VIAL. ONE (09:56)
[2016-12-20] MEDS ORDERED: BISACODYL 10 MG SUPP.RECT ONE (10:00)
--- NOTE | 2016-12-20 10:02 | PDOC ---
PROGRESS NOTES Chief Complaint Chief Complaint cc: abdominal pain A/P Acute pancreatitis, Possible gall stone related. s/p Lap cholecystectomy Plan s/p Lap cholecystectomy Continue iv hydration GI and GS following Meropenem clinically improving, Monitor vitals. Vitals Vitals Vital Signs Date Time Temp Pulse Resp B/P Pulse Ox O2 Delivery O2 Flow Rate FiO2 12/20/16 09:24 99.2 66 16 139/69 97 Room Air 99.2 Physical Exam General: Alert, Oriented X3, Cooperative, No acute distress Heart: Regular rate, Normal S1, Normal S2, No murmurs Lungs: Clear, Wheezing Abdomen: Normal bowel sounds, Soft, No tenderness, Other Extremities: No clubbing, No cyanosis Skin: No rashes, No breakdown Labs LABS Laboratory Tests Test 12/20/16 05:30 White Blood Count 11.1x10^3/uL (4.0-11.0) Red Blood Count 4.31x10^6/uL (4.30-5.70) Hemoglobin 13.7g/dL (13.0-17.5) Hematocrit 40.2% (39.0-53.0) Mean Corpuscular Volume 93fL (79-100) Mean Corpuscular Hemoglobin 32pg (25-35) Mean Corpuscular Hemoglobin Concent 34g/dL (31-37) Red Cell Distribution Width 12.9% (11.5-14.5) Platelet Count 133x10^3/uL (140-400) Neutrophils (%) (Auto) 81% (31-73) Lymphocytes (%) (Auto) 9% (24-48) Monocytes (%) (Auto) 9% (0-9) Eosinophils (%) (Auto) 0% (0-3) Basophils (%) (Auto) 0% (0-3) Neutrophils # (Auto) 9.0x10^3uL (1.8-7.7) Lymphocytes # (Auto) 1.0x10^3/uL (1.0-4.8) Monocytes # (Auto) 1.0x10^3/uL (0.0-1.1) Eosinophils # (Auto) 0.0x10^3/uL (0.0-0.7) Basophils # (Auto) 0.0x10^3/uL (0.0-0.2) Sodium Level 137mmol/L (136-145) Potassium Level 3.7mmol/L (3.5-5.1) Chloride Level 101mmol/L (98-107) Carbon Dioxide Level 29mmol/L (21-32) Anion Gap 7 (6-14) Blood Urea Nitrogen 8mg/dL (8-26) Creatinine 0.6mg/dL (0.7-1.3) Estimated GFR (Cockcroft-Gault) 137.4 BUN/Creatinine Ratio 13 (6-20) Glucose Level 130mg/dL (70-99) Calcium Level 8.6mg/dL (8.5-10.1) Total Bilirubin 0.9mg/dL (0.2-1.0) Aspartate Amino Transf (AST/SGOT) 19U/L (15-37) Alanine Aminotransferase (ALT/SGPT) 41U/L (16-63) Alkaline Phosphatase 66U/L (46-116) Total Protein 6.9g/dL (6.4-8.2) Albumin 3.0g/dL (3.4-5.0) Albumin/Globulin Ratio 0.8 (1.0-1.7) Assessment and Plan Assessmemt and Plan Problems Medical Problems: (1) Pancreatitis Status: Acute Problems: Comment Review of Relevant I have reviewed the following items brayan (where applicable) has been applied. Labs Laboratory Tests Test 12/19/16 08:41 12/20/16 05:30 White Blood Count 13.7x10^3/uL (4.0-11.0) 11.1x10^3/uL (4.0-11.0) Red Blood Count 4.46x10^6/uL (4.30-5.70) 4.31x10^6/uL (4.30-5.70) Hemoglobin 14.2g/dL (13.0-17.5) 13.7g/dL (13.0-17.5) Hematocrit 42.7% (39.0-53.0) 40.2% (39.0-53.0) Mean Corpuscular Volume 96fL (79-100) 93fL (79-100) Mean Corpuscular Hemoglobin 32pg (25-35) 32pg (25-35) Mean Corpuscular Hemoglobin Concent 33g/dL (31-37) 34g/dL (31-37) Red Cell Distribution Width 13.3% (11.5-14.5) 12.9% (11.5-14.5) Platelet Count 112x10^3/uL (140-400) 133x10^3/uL (140-400) Neutrophils (%) (Auto) 83% (31-73) 81% (31-73) Lymphocytes (%) (Auto) 10% (24-48) 9% (24-48) Monocytes (%) (Auto) 7% (0-9) 9% (0-9) Eosinophils (%) (Auto) 0% (0-3) 0% (0-3) Basophils (%) (Auto) 0% (0-3) 0% (0-3) Neutrophils # (Auto) 11.3x10^3uL (1.8-7.7) 9.0x10^3uL (1.8-7.7) Lymphocytes # (Auto) 1.4x10^3/uL (1.0-4.8) 1.0x10^3/uL (1.0-4.8) Monocytes # (Auto) 1.0x10^3/uL (0.0-1.1) 1.0x10^3/uL (0.0-1.1) Eosinophils # (Auto) 0.0x10^3/uL (0.0-0.7) 0.0x10^3/uL (0.0-0.7) Basophils # (Auto) 0.0x10^3/uL (0.0-0.2) 0.0x10^3/uL (0.0-0.2) Sodium Level 139mmol/L (136-145) 137mmol/L (136-145) Potassium Level 4.0mmol/L (3.5-5.1) 3.7mmol/L (3.5-5.1) Chloride Level 102mmol/L (98-107) 101mmol/L (98-107) Carbon Dioxide Level 28mmol/L (21-32) 29mmol/L (21-32) Anion Gap 9 (6-14) 7 (6-14) Blood Urea Nitrogen 8mg/dL (8-26) 8mg/dL (8-26) Creatinine 0.7mg/dL (0.7-1.3) 0.6mg/dL (0.7-1.3) Estimated GFR (Cockcroft-Gault) 115.0 137.4 Glucose Level 124mg/dL (70-99) 130mg/dL (70-99) Calcium Level 8.7mg/dL (8.5-10.1) 8.6mg/dL (8.5-10.1) Total Bilirubin 1.0mg/dL (0.2-1.0) 0.9mg/dL (0.2-1.0) Direct Bilirubin 0.2mg/dL (0.0-0.2) Aspartate Amino Transf (AST/SGOT) 24U/L (15-37) 19U/L (15-37) Alanine Aminotransferase (ALT/SGPT) 54U/L (16-63) 41U/L (16-63) Alkaline Phosphatase 68U/L (46-116) 66U/L (46-116) Total Protein 7.2g/dL (6.4-8.2) 6.9g/dL (6.4-8.2) Albumin 3.3g/dL (3.4-5.0) 3.0g/dL (3.4-5.0) Lipase 347U/L (73-393) BUN/Creatinine Ratio 13 (6-20) Albumin/Globulin Ratio 0.8 (1.0-1.7) Laboratory Tests Test 12/20/16 05:30 White Blood Count 11.1x10^3/uL (4.0-11.0) Red Blood Count 4.31x10^6/uL (4.30-5.70) Hemoglobin 13.7g/dL (13.0-17.5) Hematocrit 40.2% (39.0-53.0) Mean Corpuscular Volume 93fL (79-100) Mean Corpuscular Hemoglobin 32pg (25-35) Mean Corpuscular Hemoglobin Concent 34g/dL (31-37) Red Cell Distribution Width 12.9% (11.5-14.5) Platelet Count 133x10^3/uL (140-400) Neutrophils (%) (Auto) 81% (31-73) Lymphocytes (%) (Auto) 9% (24-48) Monocytes (%) (Auto) 9% (0-9) Eosinophils (%) (Auto) 0% (0-3) Basophils (%) (Auto) 0% (0-3) Neutrophils # (Auto) 9.0x10^3uL (1.8-7.7) Lymphocytes # (Auto) 1.0x10^3/uL (1.0-4.8) Monocytes # (Auto) 1.0x10^3/uL (0.0-1.1) Eosinophils # (Auto) 0.0x10^3/uL (0.0-0.7) Basophils # (Auto) 0.0x10^3/uL (0.0-0.2) Sodium Level 137mmol/L (136-145) Potassium Level 3.7mmol/L (3.5-5.1) Chloride Level 101mmol/L (98-107) Carbon Dioxide Level 29mmol/L (21-32) Anion Gap 7 (6-14) Blood Urea Nitrogen 8mg/dL (8-26) Creatinine 0.6mg/dL (0.7-1.3) Estimated GFR (Cockcroft-Gault) 137.4 BUN/Creatinine Ratio 13 (6-20) Glucose Level 130mg/dL (70-99) Calcium Level 8.6mg/dL (8.5-10.1) Total Bilirubin 0.9mg/dL (0.2-1.0) Aspartate Amino Transf (AST/SGOT) 19U/L (15-37) Alanine Aminotransferase (ALT/SGPT) 41U/L (16-63) Alkaline Phosphatase 66U/L (46-116) Total Protein 6.9g/dL (6.4-8.2) Albumin 3.0g/dL (3.4-5.0) Albumin/Globulin Ratio 0.8 (1.0-1.7) Medications Current Medications Sodium Chloride (Iv Sodium Chloride 0.9% 1000ml Bag) 1,000 ml @ 1,000 mls/hr Q1H IV Last administered on 12/17/16t 01:55; Start 12/17/16 at 01:15; Stop at 02:14; Status DC Ondansetron HCl (Zofran) 4 mg 1X ONCE IV Last administered on 12/17/16 01:55 ; Start 12/17/16 at 01:15; Stop 12/17/16 at 01:18; Status DC Famotidine (Pepcid) 20 mg 1X ONCE IVP Last administered on 12/17/16 01:55; Start 12/17/16 at 01:15; Stop 12/17/16 at 01:18; Status DC Morphine Sulfate 4 mg 1X ONCE IV Last administered on 12/17/16 01:55; Start 12/17/16 at 01:15; Stop 12/17/16 at 01:18; Status DC Iohexol (Omnipaque 300 Mg/ml) 75 ml 1X ONCE IV Last administered on 12/17/16 03:22; Start 12/17/16 at 01:30; Stop 12/17/16 at 01:31; Status DC Info (Do NOT chart on this entry -- for MONITORING) 1 each PRN DAILY PRN MC SEE COMMENTS; Start 12/17/16 at 01:30; Stop 12/19/16 at 01:29; Status DC Morphine Sulfate 4 mg 1X ONCE IV Last administered on 12/17/16 03:39; Start 12/17/16 at 03:15; Stop 12/17/16 at 03:16; Status DC Ondansetron HCl (Zofran) 4 mg PRN Q8HRS PRN IV NAUSEA/VOMITING Last administered on 12/17/16 19:28; Start 12/17/16 at 04:30; Stop 12/18/16 at 04:29 ; Status DC Morphine Sulfate 4 mg 4 mg PRN Q1HR PRN IV SEVERE PAIN Last administered on 12/20 07:59; Start 12/17/16 at 04:30 Sodium Chloride (Iv Sodium Chloride 0.9% 1000ml Bag) 1,000 ml @ 125 mls/hr Q8H IV Last administered on 12/17/16 08:33; Start 12/17/16 at 04:30; Stop at 09:42; Status DC Acetaminophen (Tylenol) 650 mg PRN Q4HRS PRN PO FEVER; Start 12/17/16 at 04:30 ; Stop 12/18/16 at 04:29; Status DC Acetaminophen (Tylenol) 325 mg PRN Q6HRS PRN PO MILD PAIN / TEMP; Start at 09:45 Acetaminophen/ Hydrocodone Bitart (Lortab 5/325) 1 tab PRN Q6HRS PRN PO MODERATE TO SEVERE PAIN Last administered on 12/19/16 20:17; Start 12/17/16 at 09:45 Hydralazine HCl (Apresoline) 10 mg PRN Q4HRS PRN IVP ELEVATED BP, SEE COMMENTS ; Start 12/17/16 at 09:45 Ondansetron HCl (Zofran) 4 mg PRN Q8HRS PRN IV NAUSEA/VOMITING Last administered on 12/20/16 07:56; Start 12/17/16 at 09:45 Albuterol Sulfate 2.5 mg 2.5 mg PRN Q4HRS PRN NEB SHORTNESS OF BREATH; Start at 09:45 Sodium Chloride 1,000 ml @ 150 mls/hr Q6H40M IV Last administered on 12/19/16 08:32; Start 12/17/16 at 09:41; Stop 12/19/16 at 09:40; Status DC Meropenem 1 gm/ Sodium Chloride 100 ml @ 200 mls/hr Q8HRS IV Last administered on 12/20/16 05:35; Start 12/19/16 at 11:30 Cefazolin Sodium/ Dextrose 50 ml @ 100 mls/hr 1X PREOP IV ; Start 12/19/16 at 14:00; Stop 12/20/16 at 18:00 Sodium Chloride (Iv Sodium Chloride 0.9% 1000ml Bag) 1,000 ml @ 75 mls/hr [id number] IV Last administered on 12/20/16 05:35; Start 12/19/16 at 14:30 Ondansetron HCl (Zofran) 4 mg PRN Q6HRS PRN IV Nausea; Start 12/20/16 at 07:00; Stop 12/21/16 at 06:59 Fentanyl Citrate (Fentanyl 2ml Vial) 25 mcg PRN Q5MIN PRN IV MILD PAIN; Start 12/20/16 at 07:00; Stop 12/21/16 at 06:59 Fentanyl Citrate (Fentanyl 2ml Vial) 50 mcg PRN Q5MIN PRN IV MODERATE PAIN; Start 12/20/16 at 07:00; Stop 12/21/16 at 06:59 Morphine Sulfate 1 mg 1 mg PRN Q10MIN PRN IV SEVERE PAIN; Start 12/20/16 at 07: 00; Stop 12/21/16 at 06:59 Lactated Ringer's (Iv Lactated Ringers) 1,000 ml @ 0 mls/hr Q0M IV ; Start 12/20 at 07:00; Stop 12/20/16 at 18:59 Lidocaine HCl 2 ml 1X PRN PRN ID IV START; Start 12/20/16 at 07:00; Stop at 06:59 Hydromorphone HCl (Dilaudid) 0.5 mg PRN Q10MIN PRN IV SEVERE PAIN, Second choice; Start 12/20/16 at 07:00; Stop 12/21/16 at 06:59 Prochlorperazine Edisylate 5 mg 5 mg PACU PRN PRN IV NAUSEA; Start 12/20/16 at 07:00; Stop 12/21/16 at 06:59 Heparin Sodium (Porcine)/Sodium Chloride (Iv Sodium Chloride 0.9% 1000ml Bag) 1, 001 ml @ 1,001 mls/hr 1X PERIOP ONCE IRR ; Start 12/20/16 at 06:00; Stop at 06:59; Status DC Fentanyl Citrate (Fentanyl 5ml Vial) 250 mcg STK-MED ONCE .ROUTE ; Start at 09:30; Stop 12/20/16 at 09:31; Status DC Rocuronium [place] (Zemuron) 50 mg STK-MED ONCE .ROUTE ; Start 12/20/16 at 09:30 ; Stop 12/20/16 at 09:31; Status DC Midazolam HCl (Versed) 2 mg STK-MED ONCE .ROUTE ; Start 12/20/16 at 09:30; Stop 12/20/16 at 09:31; Status DC Sevoflurane 30 ml 30 ml STK-MED ONCE IH ; Start 12/20/16 at 09:30; Stop 12/20/16 at 09:31; Status DC Propofol (Diprivan) 20 ml @ As Directed STK-MED ONCE IV ; Start 12/20/16 at 09:30 ; Stop 12/20/16 at 09:31; Status DC Famotidine (Pepcid) 20 mg STK-MED ONCE .ROUTE ; Start 12/20/16 at 09:31; Stop 12/20/16 at 09:32; Status DC Ondansetron HCl (Zofran) 4 mg STK-MED ONCE .ROUTE ; Start 12/20/16 at 09:31; Stop 12/20/16 at 09:32; Status DC Lidocaine HCl 100 mg STK-MED ONCE .ROUTE ; Start 12/20/16 at 09:31; Stop 12/20/16 at 09:32; Status DC Bupivacaine HCl/ Epinephrine Bitart (Sensorcain-Mpf Epi 0.5%-1:[id number]) 30 ml STK -MED ONCE .ROUTE ; Start 12/20/16 at 09:56; Stop 12/20/16 at 09:57; Status DC Iohexol (Omnipaque 300 Mg/ml) 50 ml STK-MED ONCE .ROUTE ; Start 12/20/16 at 09:56 ; Stop 12/20/16 at 09:57; Status DC Cellulose 1 each STK-MED ONCE .ROUTE ; Start 12/20/16 at 09:56; Stop 12/20/16 at 09:57; Status DC Bisacodyl (Dulcolax Supp) 10 mg STK-MED ONCE .ROUTE ; Start 12/20/16 at 10:00; Stop 12/20/16 at 10:01; Status DC Active Scripts Active Reported [no home medications] Vitals/I & O Vital Sign - Last 24 Hours 12/19/16 12/19/16 12/19/16 12/19/16 11:00 11:45 15:00 19:00 Temp 99.5 98.1 100.2 99.5 98.1 100.2 Pulse 72 74 74 Resp 19 19 20 B/P 139/75 129/74 129/70 Pulse Ox 97 95 98 O2 Delivery Room Air Room Air Room Air Room Air 12/19/16 12/19/16 12/19/16 12/19/16 20:00 20:17 21:17 23:00 Temp 98.6 98.6 Pulse 68 Resp 20 B/P 128/67 Pulse Ox 98 98 97 O2 Delivery Room Air Room Air Room Air Room Air 12/20/16 12/20/16 12/20/16 12/20/16 03:16 07:00 07:59 08:00 Temp 98.0 99.5 98.0 99.5 Pulse 68 74 Resp 20 18 B/P 134/78 133/79 Pulse Ox 96 95 O2 Delivery Room Air Room Air Room Air Room Air 12/20/16 09:24 Temp 99.2 99.2 Pulse 66 Resp 16 B/P 139/69 Pulse Ox 97 O2 Delivery Room Air Intake and Output 12/19/16 12/19/16 12/20/16 15:00 23:00 07:00 Intake Total 900 ml 1100 ml Balance 900 ml 1100 ml LOR FONSECA MD Dec 20, 2016 10:02
[2016-12-20] MEDS ORDERED: DEXAMETHASONE SOD PHOS 20 MG/5 ML VIAL. ONE (10:17)
[2016-12-20] MEDS ORDERED: EPHEDRINE SULFATE 50 MG/ML VIAL. ONE (10:31)
[2016-12-20] MEDS ORDERED: BUPIVAC MPF-EPI 0.5%-1:200000 30 ML VIAL. INJ ONE (10:38)
--- NOTE | 2016-12-20 10:57 | RAD ---
Intraoperative cholangiogram, 12/20/2016: History: Cholecystectomy 2 spot films from surgery are presented for review. Contrast has been injected into the cystic duct remnant. 15 seconds of fluoroscopy time was utilized. There is good flow of contrast into the duodenum at the ampulla. The common duct is of normal caliber. Inconsistent filling defects in the distal duct are probably due to air bubbles. No definite calculus is seen. The incompletely opacified intrahepatic ducts are unremarkable. There is mild contrast extravasation at the gallbladder fossa level, probably on a technical basis at the catheter insertion site in the cystic duct.
[2016-12-20] MEDS ORDERED: GLYCOPYRROLATE 1 MG/5 ML VIAL. ONE (10:59)
[2016-12-20] MEDS ORDERED: NEOSTIGMINE METHYLSULFATE 5 MG/5 ML SYRINGE. ONE (11:00)
--- NOTE | 2016-12-20 11:03 | PDOC ---
Subjective: Subjective: Out for surgery. Objective: Objective: Tmax 99.5 Vital Signs: Vital Signs Date Time Temp Pulse Resp B/P Pulse Ox O2 Delivery O2 Flow Rate FiO2 12/20/16 09:24 99.2 66 16 139/69 97 Room Air 99.2 Labs: Laboratory Tests Test 12/20/16 05:30 White Blood Count 11.1x10^3/uL Red Blood Count 4.31x10^6/uL Hemoglobin 13.7g/dL Hematocrit 40.2% Mean Corpuscular Volume 93fL Mean Corpuscular Hemoglobin 32pg Mean Corpuscular Hemoglobin Concent 34g/dL Red Cell Distribution Width 12.9% Platelet Count 133x10^3/uL Neutrophils (%) (Auto) 81% Lymphocytes (%) (Auto) 9% Monocytes (%) (Auto) 9% Eosinophils (%) (Auto) 0% Basophils (%) (Auto) 0% Neutrophils # (Auto) 9.0x10^3uL Lymphocytes # (Auto) 1.0x10^3/uL Monocytes # (Auto) 1.0x10^3/uL Eosinophils # (Auto) 0.0x10^3/uL Basophils # (Auto) 0.0x10^3/uL Sodium Level 137mmol/L Potassium Level 3.7mmol/L Chloride Level 101mmol/L Carbon Dioxide Level 29mmol/L Anion Gap 7 Blood Urea Nitrogen 8mg/dL Creatinine 0.6mg/dL Estimated GFR (Cockcroft-Gault) 137.4 BUN/Creatinine Ratio 13 Glucose Level 130mg/dL Calcium Level 8.6mg/dL Total Bilirubin 0.9mg/dL Aspartate Amino Transf (AST/SGOT) 19U/L Alanine Aminotransferase (ALT/SGPT) 41U/L Alkaline Phosphatase 66U/L Total Protein 6.9g/dL Albumin 3.0g/dL Albumin/Globulin Ratio 0.8 Imaging: IOC 12/20/16 There is good flow of contrast into the duodenum at the ampulla. The common duct is of normal caliber. Inconsistent filling defects in the distal duct are probably due to air bubbles. No definite calculus is seen. The incompletely opacified intrahepatic ducts are unremarkable. There is mild contrast extravasation at the gallbladder fossa level, probably on a technical basis at the catheter insertion site in the cystic duct. PE: no exam A/P: Pancreatitis -on CT: fluid and edema around pancreatic tail w/ gallstone -abd pain, lipase, LFTs, and WBC improved -- Cholecystectomy w/ IOC this morning. Will follow. RUPERTO GORDILLO Dec 20, 2016 11:03
[2016-12-20] MEDS: IV RINGERS,LACTATED 1000ML 1,000 ML IV SCH ×2 (11:05→20:57)
--- NOTE | 2016-12-20 11:13 | PDOC ---
BRIEF OPERATIVE NOTE Pre-Op Diagnosis Gallstone pancreatitis Post-Op Diagnosis same Procedure Performed Lap indio with samir Surgeon Magui Anesthesia Type: General, Local Blood Loss 50 IV Fluid 1000 Specimens Obtained GB Findings wnl ioc Complications none Additional Remarks [id number] IVANIA PRO MD Dec 20, 2016 11:13
[2016-12-20] MEDS ORDERED: KETOROLAC TROMETHAMINE 30 MG/ML SYRINGE. IV PRN (11:15)
[2016-12-20] MEDS ORDERED: 0.9 % SODIUM CHLORIDE 10 ML DISP.SYRIN. IV PRN (11:15)
[2016-12-20] MEDS ORDERED: HYDROCODONE/APAP 5/325MG TABLET. PO PRN (11:15)
[2016-12-20] MEDS ORDERED: DEXTROSE 50% 25 GM / 50ML DISP.SYRIN. IV PRN (11:15)
--- NOTE | 2016-12-20 22:01 | OP ---
DATE OF SURGERY: 12/20/2016 REFERRING PHYSICIANS: Dr. Garfield Fernando, Dr. Umang Marvin, Dr. Callaway, Dr. Supa Guzman, and Dr. Martin Mosquera. PREOPERATIVE DIAGNOSIS: Gallstone pancreatitis. POSTOPERATIVE DIAGNOSIS: Gallstone pancreatitis. PROCEDURES: Laparoscopic cholecystectomy with intraoperative cholangiogram. SURGEON: Lopez Kilgore M.D. ESTIMATED BLOOD LOSS: 50 mL. FLUIDS: 1000 mL. COMPLICATIONS: None. FINDINGS: Friable gallbladder, normal appearing intraoperative cholangiogram. INDICATIONS: A 61-year-old male presents with gallstone pancreatitis. His pancreatitis has improved. Subsequently, it was felt the patient best be served by laparoscopic cholecystectomy with intraoperative cholangiogram. The patient and the patient's were informed of the risks, benefits, alternatives of procedure, risks including but not limited to bleeding, infection, damage to surrounding structures, risk of anesthesia, risk of an open procedure. The patient and the patient's appeared to understand and their insightful questions were answered and they agreed to proceed. DESCRIPTION OF PROCEDURE: After obtaining informed consent, the patient was taken to the operating room. The patient was prepped and draped in usual fashion in the anterior abdominal wall. A 0.5% Marcaine with epinephrine was injected in the supraumbilical area, a 5 mm nonbladed trocar was introduced in the abdominal cavity under direct vision of laparoscope. Pneumoperitoneum was established. Additional 12 port was placed in the epigastrium, another 5 mm port was placed in the right upper quadrant, all under direct vision of the laparoscope. The abdominal cavity was explored. The patient is obese, making the procedure somewhat difficult. The visualized portion of viscera are normal in appearance. There was no evidence of trocar injury. There was no evidence of other pathology in the abdominal cavity. However, the gallbladder was noted to be distended and friable, gallbladder was grasped. The triangle of Calot was exposed. The peritoneum overlying the cystic duct was taken down using blunt dissection. Circumferential dissection was performed of the cystic duct at the cystic duct infundibulum junction. Critical view was obtained. This demonstrated cystic duct and cystic artery as the only structures going to the gallbladder. Clips were placed on the cystic artery and clip was placed on the cystic duct infundibulum junction. Incision was made in the cystic duct using EndoShears. Cholangiogram catheter was introduced and cholangiogram was obtained. Cholangiogram demonstrated normal appearing hepatic ducts, normal appearing common bile duct, free extravasation into the duodenum. Cholangiogram catheter was removed. Multiple clips were placed on the cystic duct stump including Hem-o-cecilia and the cystic duct was divided. Cystic artery was divided between the previously placed clips. The gallbladder was taken off the gallbladder fossa sharply using electrocautery. The gallbladder was placed in EndoCatch bag, brought out through the epigastric port and passed off field and sent to pathology for evaluation. The abdominal cavity was copiously irrigated with normal saline solution. There was no evidence of bleeding or bile leak at the time of closure. All ports were removed under direct vision of laparoscope. There was no evidence port site bleeding. Fascial defect in the epigastrium was reapproximated using interrupted 0 Vicryl stitch using Endo Close. All skin incisions were approximated using multiple interrupted 4-0 Monocryl in subcuticular fashion. Sterile dressing was placed over all wounds. The patient tolerated procedure well and was discharged to recovery room in stable condition. All counts correct. There were no immediate complications. Wound classification is contaminated as there was some spillage of bile. Thank you for allowing my participation in the care of this very pleasant patient. LOPEZ KILGORE MD DR: YARELI/geneva JOB#: [id number] / [id number] MARTIN Ley SAMIR MD PROPECK, SCOTT MD REUSCH, URSULA MD WILSON, KYLE MD
[2016-12-21 03:00] VITALS: BP 117/62
[2016-12-21] MEDS: IV NORMAL SALINE 1000ML BAG 1,000 ML IV SCH ×2 (05:31→18:55)
[2016-12-21] MEDS: IV RINGERS,LACTATED 1000ML 1,000 ML IV SCH ×3 (05:31→22:48)
[2016-12-21] MEDS: MEROPENEM 1 GM in IV NORMAL SALINE 100ML 100 ML IV SCH ×3 (06:07→20:22)
[2016-12-21 07:00] VITALS: BP 118/59
--- NOTE | 2016-12-21 08:41 | PDOC ---
SURGICAL PROGRESS NOTE Subjective feeling well tolerating clears minimal incisional pain Vital Signs Vital Signs Date Time Temp Pulse Resp B/P Pulse Ox O2 Delivery O2 Flow Rate FiO2 12/21/16 07:00 98.6 60 16 118/59 96 Room Air 98.6 12/20/16 11:15 10 I&O Intake and Output 12/21/16 07:00 Intake Total 218 ml Output Total 100 ml Balance 118 ml Intake Oral 118 ml IV Total 100 ml Output Urine Total 100 ml # Voids 2 General: Alert, Oriented X3, Cooperative, No acute distress Abdomen: Soft, Other (lap dressings dry) Labs Laboratory Tests Test 12/19/16 08:41 12/20/16 05:30 White Blood Count 13.7x10^3/uL (4.0-11.0) 11.1x10^3/uL (4.0-11.0) Red Blood Count 4.46x10^6/uL (4.30-5.70) 4.31x10^6/uL (4.30-5.70) Hemoglobin 14.2g/dL (13.0-17.5) 13.7g/dL (13.0-17.5) Hematocrit 42.7% (39.0-53.0) 40.2% (39.0-53.0) Mean Corpuscular Volume 96fL (79-100) 93fL (79-100) Mean Corpuscular Hemoglobin 32pg (25-35) 32pg (25-35) Mean Corpuscular Hemoglobin Concent 33g/dL (31-37) 34g/dL (31-37) Red Cell Distribution Width 13.3% (11.5-14.5) 12.9% (11.5-14.5) Platelet Count 112x10^3/uL (140-400) 133x10^3/uL (140-400) Neutrophils (%) (Auto) 83% (31-73) 81% (31-73) Lymphocytes (%) (Auto) 10% (24-48) 9% (24-48) Monocytes (%) (Auto) 7% (0-9) 9% (0-9) Eosinophils (%) (Auto) 0% (0-3) 0% (0-3) Basophils (%) (Auto) 0% (0-3) 0% (0-3) Neutrophils # (Auto) 11.3x10^3uL (1.8-7.7) 9.0x10^3uL (1.8-7.7) Lymphocytes # (Auto) 1.4x10^3/uL (1.0-4.8) 1.0x10^3/uL (1.0-4.8) Monocytes # (Auto) 1.0x10^3/uL (0.0-1.1) 1.0x10^3/uL (0.0-1.1) Eosinophils # (Auto) 0.0x10^3/uL (0.0-0.7) 0.0x10^3/uL (0.0-0.7) Basophils # (Auto) 0.0x10^3/uL (0.0-0.2) 0.0x10^3/uL (0.0-0.2) Sodium Level 139mmol/L (136-145) 137mmol/L (136-145) Potassium Level 4.0mmol/L (3.5-5.1) 3.7mmol/L (3.5-5.1) Chloride Level 102mmol/L (98-107) 101mmol/L (98-107) Carbon Dioxide Level 28mmol/L (21-32) 29mmol/L (21-32) Anion Gap 9 (6-14) 7 (6-14) Blood Urea Nitrogen 8mg/dL (8-26) 8mg/dL (8-26) Creatinine 0.7mg/dL (0.7-1.3) 0.6mg/dL (0.7-1.3) Estimated GFR (Cockcroft-Gault) 115.0 137.4 Glucose Level 124mg/dL (70-99) 130mg/dL (70-99) Calcium Level 8.7mg/dL (8.5-10.1) 8.6mg/dL (8.5-10.1) Total Bilirubin 1.0mg/dL (0.2-1.0) 0.9mg/dL (0.2-1.0) Direct Bilirubin 0.2mg/dL (0.0-0.2) Aspartate Amino Transf (AST/SGOT) 24U/L (15-37) 19U/L (15-37) Alanine Aminotransferase (ALT/SGPT) 54U/L (16-63) 41U/L (16-63) Alkaline Phosphatase 68U/L (46-116) 66U/L (46-116) Total Protein 7.2g/dL (6.4-8.2) 6.9g/dL (6.4-8.2) Albumin 3.3g/dL (3.4-5.0) 3.0g/dL (3.4-5.0) Lipase 347U/L (73-393) BUN/Creatinine Ratio 13 (6-20) Albumin/Globulin Ratio 0.8 (1.0-1.7) Problem List Problems Medical Problems: (1) Gallstone pancreatitis Status: Acute (2) Pancreatitis Status: Acute Assessment/Plan s/p lap inido advance diet Problems: ENRIQUE ADAME APRN Dec 21, 2016 08:41
[2016-12-21 11:00] VITALS: BP 133/72
--- NOTE | 2016-12-21 11:41 | PDOC ---
Subjective: Subjective: Feeling pretty good. Only minimal abd pain. Eating okay. Had a BM. Objective: Vital Signs: Vital Signs Date Time Temp Pulse Resp B/P Pulse Ox O2 Delivery O2 Flow Rate FiO2 12/21/16 11:00 98.3 65 18 133/72 98 Room Air 98.3 12/20/16 11:15 10 PE: GEN: NAD, shaving in bathroom LUNGS: CTAB HEART: RRR ABD: S/ND, mild incisional tenderness NEURO/PSYCH: A & O 3 A/P: S/p cholecystectomy 12/20 Gallstone pancreatitis -abd pain, lipase, LFTs, and WBC improved -- Possible DC today - okay per GI. RUEPRTO GORDILLO Dec 21, 2016 11:41 SERG MCCLAIN MD Dec 21, 2016 11:43
--- NOTE | 2016-12-21 11:52 | PDOC ---
Infectious Disease Note Subjective Subjective Doing well. On clears ROS ROS GEN: Denies fevers, chills, sweats HEENT: Denies blurred vision, sore throat CV: Denies chest pain RESP: Denies shortness of air, cough GI: Denies n/v/d NEURO: Denies confusion, dizziness MSK: Denies weakness, joint pain/swelling Vital Sign Vital Signs Vital Signs Date Time Temp Pulse Resp B/P Pulse Ox O2 Delivery O2 Flow Rate FiO2 12/21/16 11:00 98.3 65 18 133/72 98 Room Air 98.3 12/20/16 11:15 10 Physical Exam PHYSICAL EXAM GENERAL: NAD, Alert, coop HEENT: PERRL, OC/OP- clear NECK: Supple, no JVD, no LN LUNGS: Clear HEART: S1S2, no gallop, no murmur ABD: Soft, NT, no organomegaly, no rebound. Incisions clean EXT: No edema, no cyanosis SECURITY ADVISOR: Alert, oriented x 3, no focal neurologic deficit SKIN: No rash IV: ok Objective Assessment Leukocytosis Pancreatitis Fever Gallstone s/p Lap indio Plan Plan of Care Cont Meropenem Advance diet Labs in am D/w DAVID WHITAKER MD Dec 21, 2016 11:52
--- NOTE | 2016-12-21 14:12 | PDOC ---
PROGRESS NOTES Chief Complaint Chief Complaint cc: abdominal pain A/P Acute pancreatitis, Possible gall stone related. s/p Lap cholecystectomy Plan s/p Lap cholecystectomy watch for any fevers, advance diet GI and GS following Meropenem clinically improving, Monitor vitals. Vitals Vitals Vital Signs Date Time Temp Pulse Resp B/P Pulse Ox O2 Delivery O2 Flow Rate FiO2 12/21/16 11:00 98.3 65 18 133/72 98 Room Air 98.3 12/20/16 11:15 10 Physical Exam General: Alert, Oriented X3, Cooperative, No acute distress Heart: Regular rate, Normal S1, Normal S2, No murmurs Lungs: Clear, Wheezing Abdomen: Soft, Other (lap dressings dry) Extremities: No clubbing, No cyanosis Skin: No rashes, No breakdown Assessment and Plan Assessmemt and Plan Problems Medical Problems: (1) Gallstone pancreatitis Status: Acute (2) Pancreatitis Status: Acute Problems: Comment Review of Relevant I have reviewed the following items brayan (where applicable) has been applied. Labs Laboratory Tests Test 12/20/16 05:30 White Blood Count 11.1x10^3/uL (4.0-11.0) Red Blood Count 4.31x10^6/uL (4.30-5.70) Hemoglobin 13.7g/dL (13.0-17.5) Hematocrit 40.2% (39.0-53.0) Mean Corpuscular Volume 93fL (79-100) Mean Corpuscular Hemoglobin 32pg (25-35) Mean Corpuscular Hemoglobin Concent 34g/dL (31-37) Red Cell Distribution Width 12.9% (11.5-14.5) Platelet Count 133x10^3/uL (140-400) Neutrophils (%) (Auto) 81% (31-73) Lymphocytes (%) (Auto) 9% (24-48) Monocytes (%) (Auto) 9% (0-9) Eosinophils (%) (Auto) 0% (0-3) Basophils (%) (Auto) 0% (0-3) Neutrophils # (Auto) 9.0x10^3uL (1.8-7.7) Lymphocytes # (Auto) 1.0x10^3/uL (1.0-4.8) Monocytes # (Auto) 1.0x10^3/uL (0.0-1.1) Eosinophils # (Auto) 0.0x10^3/uL (0.0-0.7) Basophils # (Auto) 0.0x10^3/uL (0.0-0.2) Sodium Level 137mmol/L (136-145) Potassium Level 3.7mmol/L (3.5-5.1) Chloride Level 101mmol/L (98-107) Carbon Dioxide Level 29mmol/L (21-32) Anion Gap 7 (6-14) Blood Urea Nitrogen 8mg/dL (8-26) Creatinine 0.6mg/dL (0.7-1.3) Estimated GFR (Cockcroft-Gault) 137.4 BUN/Creatinine Ratio 13 (6-20) Glucose Level 130mg/dL (70-99) Calcium Level 8.6mg/dL (8.5-10.1) Total Bilirubin 0.9mg/dL (0.2-1.0) Aspartate Amino Transf (AST/SGOT) 19U/L (15-37) Alanine Aminotransferase (ALT/SGPT) 41U/L (16-63) Alkaline Phosphatase 66U/L (46-116) Total Protein 6.9g/dL (6.4-8.2) Albumin 3.0g/dL (3.4-5.0) Albumin/Globulin Ratio 0.8 (1.0-1.7) Medications Current Medications Sodium Chloride (Iv Sodium Chloride 0.9% 1000ml Bag) 1,000 ml @ 1,000 mls/hr Q1H IV Last administered on 12/17/16 01:55; Start 12/17/16 at 01:15; Stop at 02:14; Status DC Ondansetron HCl (Zofran) 4 mg 1X ONCE IV Last administered on 12/17/16 01:55 ; Start 12/17/16 at 01:15; Stop 12/17/16 at 01:18; Status DC Famotidine (Pepcid) 20 mg 1X ONCE IVP Last administered on 12/17/16 01:55; Start 12/17/16 at 01:15; Stop 12/17/16 at 01:18; Status DC Morphine Sulfate 4 mg 1X ONCE IV Last administered on 12/17/16 01:55; Start 12/17/16 at 01:15; Stop 12/17/16 at 01:18; Status DC Iohexol (Omnipaque 300 Mg/ml) 75 ml 1X ONCE IV Last administered on 12/17/16 03:22; Start 12/17/16 at 01:30; Stop 12/17/16 at 01:31; Status DC Info (Do NOT chart on this entry -- for MONITORING) 1 each PRN DAILY PRN MC SEE COMMENTS; Start 12/17/16 at 01:30; Stop 12/19/16 at 01:29; Status DC Morphine Sulfate 4 mg 1X ONCE IV Last administered on 12/17/16 03:39; Start 12/17/16 at 03:15; Stop 12/17/16 at 03:16; Status DC Ondansetron HCl (Zofran) 4 mg PRN Q8HRS PRN IV NAUSEA/VOMITING Last administered on 12/17/16 19:28; Start 12/17/16 at 04:30; Stop 12/18/16 at 04:29 ; Status DC Morphine Sulfate 4 mg 4 mg PRN Q1HR PRN IV SEVERE PAIN Last administered on 12/20 07:59; Start 12/17/16 at 04:30 Sodium Chloride (Iv Sodium Chloride 0.9% 1000ml Bag) 1,000 ml @ 125 mls/hr Q8H IV Last administered on 12/17/16 08:33; Start 12/17/16 at 04:30; Stop at 09:42; Status DC Acetaminophen (Tylenol) 650 mg PRN Q4HRS PRN PO FEVER; Start 12/17/16 at 04:30 ; Stop 12/18/16 at 04:29; Status DC Acetaminophen (Tylenol) 325 mg PRN Q6HRS PRN PO MILD PAIN / TEMP; Start at 09:45 Acetaminophen/ Hydrocodone Bitart (Lortab 5/325) 1 tab PRN Q6HRS PRN PO MODERATE TO SEVERE PAIN Last administered on 12/19/16 20:17; Start 12/17/16 at 09:45 Hydralazine HCl (Apresoline) 10 mg PRN Q4HRS PRN IVP ELEVATED BP, SEE COMMENTS ; Start 12/17/16 at 09:45 Ondansetron HCl (Zofran) 4 mg PRN Q8HRS PRN IV NAUSEA/VOMITING Last administered on 12/20/16 07:56; Start 12/17/16 at 09:45 Albuterol Sulfate 2.5 mg 2.5 mg PRN Q4HRS PRN NEB SHORTNESS OF BREATH; Start at 09:45 Sodium Chloride 1,000 ml @ 150 mls/hr Q6H40M IV Last administered on 12/19/16 08:32; Start 12/17/16 at 09:41; Stop 12/19/16 at 09:40; Status DC Meropenem 1 gm/ Sodium Chloride 100 ml @ 200 mls/hr Q8HRS IV Last administered on 12/21/16 06:07; Start 12/19/16 at 11:30 Cefazolin Sodium/ Dextrose 50 ml @ 100 mls/hr 1X PREOP IV Last administered on 12/20/16 10:50; Start 12/19/16 at 14:00; Stop 12/20/16 at 18:00; Status DC Sodium Chloride (Iv Sodium Chloride 0.9% 1000ml Bag) 1,000 ml @ 75 mls/hr [id number] IV Last administered on 12/20/16 05:35; Start 12/19/16 at 14:30 Ondansetron HCl (Zofran) 4 mg PRN Q6HRS PRN IV Nausea; Start 12/20/16 at 07:00; Stop 12/21/16 at 06:59; Status DC Fentanyl Citrate (Fentanyl 2ml Vial) 25 mcg PRN Q5MIN PRN IV MILD PAIN; Start 12/20/16 at 07:00; Stop 12/21/16 at 06:59; Status DC Fentanyl Citrate (Fentanyl 2ml Vial) 50 mcg PRN Q5MIN PRN IV MODERATE PAIN Last administered on 12/20/16 12:19; Start 12/20/16 at 07:00; Stop 12/21/16 at 06: 59; Status DC Morphine Sulfate 1 mg 1 mg PRN Q10MIN PRN IV SEVERE PAIN; Start 12/20/16 at 07: 00; Stop 12/21/16 at 06:59; Status DC Lactated Ringer's (Iv Lactated Ringers) 1,000 ml @ 0 mls/hr Q0M IV ; Start 12/20 at 07:00; Stop 12/20/16 at 18:59; Status DC Lidocaine HCl 2 ml 1X PRN PRN ID IV START; Start 12/20/16 at 07:00; Stop at 06:59; Status DC Hydromorphone HCl (Dilaudid) 0.5 mg PRN Q10MIN PRN IV SEVERE PAIN, Second choice; Start 12/20/16 at 07:00; Stop 12/21/16 at 06:59; Status DC Prochlorperazine Edisylate 5 mg 5 mg PACU PRN PRN IV NAUSEA; Start 12/20/16 at 07:00; Stop 12/21/16 at 06:59; Status DC Heparin Sodium (Porcine)/Sodium Chloride (Iv Sodium Chloride 0.9% 1000ml Bag) 1, 001 ml @ 1,001 mls/hr 1X PERIOP ONCE IRR ; Start 12/20/16 at 06:00; Stop at 06:59; Status DC Fentanyl Citrate (Fentanyl 5ml Vial) 250 mcg STK-MED ONCE .ROUTE ; Start at 09:30; Stop 12/20/16 at 09:31; Status DC Rocuronium Mcgrath (Zemuron) 50 mg STK-MED ONCE .ROUTE ; Start 12/20/16 at 09:30 ; Stop 12/20/16 at 09:31; Status DC Midazolam HCl (Versed) 2 mg STK-MED ONCE .ROUTE ; Start 12/20/16 at 09:30; Stop 12/20/16 at 09:31; Status DC Sevoflurane 30 ml 30 ml STK-MED ONCE IH ; Start 12/20/16 at 09:30; Stop 12/20/16 at 09:31; Status DC Propofol (Diprivan) 20 ml @ As Directed STK-MED ONCE IV ; Start 12/20/16 at 09:30 ; Stop 12/20/16 at 09:31; Status DC Famotidine (Pepcid) 20 mg STK-MED ONCE .ROUTE ; Start 12/20/16 at 09:31; Stop 12/20/16 at 09:32; Status DC Ondansetron HCl (Zofran) 4 mg STK-MED ONCE .ROUTE ; Start 12/20/16 at 09:31; Stop 12/20/16 at 09:32; Status DC Lidocaine HCl 100 mg STK-MED ONCE .ROUTE ; Start 12/20/16 at 09:31; Stop 12/20/16 at 09:32; Status DC Bupivacaine HCl/ Epinephrine Bitart (Sensorcain-Mpf Epi 0.5%-1:850425) 30 ml STK -MED ONCE .ROUTE ; Start 12/20/16 at 09:56; Stop 12/20/16 at 09:57; Status DC Iohexol (Omnipaque 300 Mg/ml) 50 ml STK-MED ONCE .ROUTE Last administered on 12:21; Start 12/20/16 at 09:56; Stop 12/20/16 at 09:57; Status DC Cellulose 1 each STK-MED ONCE .ROUTE ; Start 12/20/16 at 09:56; Stop 12/20/16 at 09:57; Status DC Bisacodyl (Dulcolax Supp) 10 mg STK-MED ONCE .ROUTE Last administered on 12:21; Start 12/20/16 at 10:00; Stop 12/20/16 at 10:01; Status DC Dexamethasone Sodium Phosphate (Decadron) 20 mg STK-MED ONCE .ROUTE ; Start 12/20 at 10:17; Stop 12/20/16 at 10:18; Status DC Ephedrine Sulfate (Akovaz) 50 mg STK-MED ONCE .ROUTE ; Start 12/20/16 at 10:31; Stop 12/20/16 at 10:32; Status DC Bupivacaine HCl/ Epinephrine Bitart (Sensorcain-Mpf Epi 0.5%-1:343893) 30 ml STK -MED ONCE INJ Last administered on 12/20/16 10:38; Start 12/20/16 at 10:38; Stop 12/20/16 at 10:58; Status DC Ondansetron HCl (Zofran) 4 mg STK-MED ONCE .ROUTE ; Start 12/20/16 at 10:59; Stop 12/20/16 at 11:00; Status DC Glycopyrrolate (Robinul) 1 mg STK-MED ONCE .ROUTE ; Start 12/20/16 at 10:59; Stop 12/20/16 at 11:00; Status DC Neostigmine Methylsulfate 5 mg STK-MED ONCE .ROUTE ; Start 12/20/16 at 11:00; Stop 12/20/16 at 11:01; Status DC Sodium Chloride 3 ml 3 ml QSHIFT PRN IV AFTER MEDS AND BLOOD DRAWS; Start at 11:15 Lactated Ringer's (Iv Lactated Ringers) 1,000 ml @ 100 mls/hr Q10H IV ; Start 12/20/16 at 11:05 Dextrose 12.5 gm PRN Q15MIN PRN IV SEE COMMENTS; Start 12/20/16 at 11:15 Acetaminophen/ Hydrocodone Bitart (Lortab 5/325) 1 tab PRN Q4HRS PRN PO MILD PAIN; Start 12/20/16 at 11:15 Ketorolac Tromethamine (Toradol) 30 mg PRN Q6HRS PRN IV PAIN; Start 12/20/16 at 11:15; Stop 12/25/16 at 11:14 Ondansetron HCl (Zofran) 4 mg PRN Q6HRS PRN IV NAUESA, 1ST CHOICE; Start at 11:15 Active Scripts Active Reported [no home medications] Vitals/I & O Vital Sign - Last 24 Hours 12/20/16 12/20/16 12/20/16 12/20/16 14:15 14:30 14:45 15:00 Temp 98.1 98.1 Pulse 76 72 81 77 B/P 157/82 149/89 124/55 132/81 Pulse Ox 94 92 91 93 O2 Delivery Room Air 12/20/16 12/20/16 12/20/16 12/20/16 15:30 16:00 17:00 19:00 Temp 99.5 99.5 Pulse 79 72 73 64 Resp 20 B/P 120/63 134/76 139/80 131/67 Pulse Ox 95 95 95 97 O2 Delivery Room Air Room Air Room Air Room Air 12/20/16 12/20/16 12/21/16 12/21/16 20:00 23:00 03:00 07:00 Temp 98.9 98.6 98.6 98.9 98.6 98.6 Pulse 56 58 60 Resp 20 20 16 B/P 98/52 117/62 118/59 Pulse Ox 96 98 96 O2 Delivery Room Air Room Air Room Air 12/21/16 12/21/16 08:06 11:00 Temp 98.3 98.3 Pulse 65 Resp 18 B/P 133/72 Pulse Ox 98 O2 Delivery Room Air Room Air Intake and Output 12/20/16 12/20/16 12/21/16 15:00 23:00 07:00 Intake Total 100 ml 118 ml 0 ml Output Total 100 ml Balance 0 ml 118 ml 0 ml LOR FONSECA MD Dec 21, 2016 14:12
[2016-12-21 14:53] VITALS: BP 126/74
--- NOTE | 2016-12-21 15:28 | PATHOLOGY ---
PATHOLOGY REPORT * * * * * * * * FINAL DIAGNOSIS: Gallbladder, laparoscopic cholecystectomy: - Cholelithiasis. - Cholesterosis. - Chronic cholecystitis. COMMENT: There is no evidence of malignancy. (JPM:csd; d/t: 12/21/2016) REPORT ELECTRONICALLY SIGNED BY: Parish Campos M.D. DATE/TIME: 12/21/2016 15:27 * * * * * * * * GROSS PATHOLOGY: Received in formalin labeled "Gen Qureshi - gallbladder and contents," is a 7.4 x 2.8 x 1.3 cm, disrupted gallbladder with blood-tinged, pink-noel to noel-green, and wrinkled serosal surfaces. Opening the gallbladder reveals dark green to bright red and granular mucosa with diffuse yellow streaking and an average wall thickness of 0.2 cm. A 1.3 cm in greatest dimension dark green, spherical, and granular appearing calculus is present and no masses are noted grossly. Nutritionist sections from the body and fundus are submitted along with the proximal margin in cassette A1. (TTL; 12/20/2016) INITIAL CPT CODE(S): A; 31921 Professional services performed by [facility] [place] [address] Technical services performed by [facility] at [address] [place] [address], [address], [place] [address]. Dr. Parish [facility], fax: [phone] SPECIMEN(S) RECEIVED: A.Gallbladder and contents CLINICAL HISTORY: Cholelithiasis PATIENT: GEN QURESHI /AGE: 12 1955 (Age: 61) PATIENT #: [id number] ALT CASE #: SPECIMEN COLLECTION DATE: 12/20/2016 SPECIMEN RECEIVED DATE: 12/20/2016 [facility] - [address] [place] [address] - PHONE: [phone] * * * END OF REPORT * * *
[2016-12-21 19:00] VITALS: BP 126/74
[2016-12-21] MEDS: HYDROCODONE/APAP 5/325MG TABLET. PO PRN (20:22)
[2016-12-21 23:00] VITALS: BP 114/57
[2016-12-22 03:00] VITALS: BP 116/69
[2016-12-22 05:54] LABS: BASO % 0 % (0-3); EOS % 1 % (0-3); HEMATOCRIT 41.5 % (39.0-53.0); HEMOGLOBIN 14.1 g/dL (13.0-17.5); LYMPH # 1.5 x10^3/uL (1.0-4.8); LYMPH % 14 % (24-48); MEAN CORPUSCULAR HEMOGLOBIN 32 pg (25-35); MEAN CORPUSCULAR HGB CONC 34 g/dL (31-37); MEAN CORPUSCULAR VOLUME 94 fL (79-100); MONO % 11 % (0-9); NEUT % 74 % (31-73); PLATELET COUNT 177 x10^3/uL (140-400); RED BLOOD COUNT 4.41 x10^6/uL (4.30-5.70); RED CELL DISTRIBUTION WIDTH 12.8 % (11.5-14.5); WHITE BLOOD COUNT 10.4 x10^3/uL (4.0-11.0)
[2016-12-22 06:13] LABS: CALCIUM 8.6 mg/dL (8.5-10.1); CREATININE 0.6 mg/dL (0.7-1.3); GFR 137.4; POTASSIUM 3.5 mmol/L (3.5-5.1)
[2016-12-22] MEDS: MEROPENEM 1 GM in IV NORMAL SALINE 100ML 100 ML IV SCH ×3 (06:34→21:34)
[2016-12-22 07:00] VITALS: BP 139/74
--- NOTE | 2016-12-22 10:20 | PDOC3 ---
Discharge Summary Visit Information Date of Admission: Dec 17, 2016 Date of Discharge: Dec 22, 2016 Admitting Diagnosis Comment: gall stone panc s/p lap inido Final Diagnosis Problems Medical Problems: (1) Gallstone pancreatitis Status: Acute (2) Pancreatitis Status: Acute Brief Hospital Course Allergies Allergies Coded Allergies Type Severity Reaction Last Updated Verified No Known Drug Allergies 12/20/16 No Vital Signs Vital Signs Date Time Temp Pulse Resp B/P Pulse Ox O2 Delivery O2 Flow Rate FiO2 12/22/16 07:00 98.2 66 18 139/74 96 Room Air 98.2 Lab Results Laboratory Tests Test 12/22/16 05:35 White Blood Count 10.4x10^3/uL (4.0-11.0) Red Blood Count 4.41x10^6/uL (4.30-5.70) Hemoglobin 14.1g/dL (13.0-17.5) Hematocrit 41.5% (39.0-53.0) Mean Corpuscular Volume 94fL (79-100) Mean Corpuscular Hemoglobin 32pg (25-35) Mean Corpuscular Hemoglobin Concent 34g/dL (31-37) Red Cell Distribution Width 12.8% (11.5-14.5) Platelet Count 177x10^3/uL (140-400) Neutrophils (%) (Auto) 74% (31-73) Lymphocytes (%) (Auto) 14% (24-48) Monocytes (%) (Auto) 11% (0-9) Eosinophils (%) (Auto) 1% (0-3) Basophils (%) (Auto) 0% (0-3) Neutrophils # (Auto) 7.7x10^3uL (1.8-7.7) Lymphocytes # (Auto) 1.5x10^3/uL (1.0-4.8) Monocytes # (Auto) 1.1x10^3/uL (0.0-1.1) Eosinophils # (Auto) 0.1x10^3/uL (0.0-0.7) Basophils # (Auto) 0.0x10^3/uL (0.0-0.2) Sodium Level 139mmol/L (136-145) Potassium Level 3.5mmol/L (3.5-5.1) Chloride Level 103mmol/L (98-107) Carbon Dioxide Level 28mmol/L (21-32) Anion Gap 8 (6-14) Blood Urea Nitrogen 13mg/dL (8-26) Creatinine 0.6mg/dL (0.7-1.3) Estimated GFR (Cockcroft-Gault) 137.4 Glucose Level 108mg/dL (70-99) Calcium Level 8.6mg/dL (8.5-10.1) Laboratory Tests Test 12/22/16 05:35 White Blood Count 10.4x10^3/uL (4.0-11.0) Red Blood Count 4.41x10^6/uL (4.30-5.70) Hemoglobin 14.1g/dL (13.0-17.5) Hematocrit 41.5% (39.0-53.0) Mean Corpuscular Volume 94fL (79-100) Mean Corpuscular Hemoglobin 32pg (25-35) Mean Corpuscular Hemoglobin Concent 34g/dL (31-37) Red Cell Distribution Width 12.8% (11.5-14.5) Platelet Count 177x10^3/uL (140-400) Neutrophils (%) (Auto) 74% (31-73) Lymphocytes (%) (Auto) 14% (24-48) Monocytes (%) (Auto) 11% (0-9) Eosinophils (%) (Auto) 1% (0-3) Basophils (%) (Auto) 0% (0-3) Neutrophils # (Auto) 7.7x10^3uL (1.8-7.7) Lymphocytes # (Auto) 1.5x10^3/uL (1.0-4.8) Monocytes # (Auto) 1.1x10^3/uL (0.0-1.1) Eosinophils # (Auto) 0.1x10^3/uL (0.0-0.7) Basophils # (Auto) 0.0x10^3/uL (0.0-0.2) Sodium Level 139mmol/L (136-145) Potassium Level 3.5mmol/L (3.5-5.1) Chloride Level 103mmol/L (98-107) Carbon Dioxide Level 28mmol/L (21-32) Anion Gap 8 (6-14) Blood Urea Nitrogen 13mg/dL (8-26) Creatinine 0.6mg/dL (0.7-1.3) Estimated GFR (Cockcroft-Gault) 137.4 Glucose Level 108mg/dL (70-99) Calcium Level 8.6mg/dL (8.5-10.1) Brief Hospital Course Mr. Aguilar is a 61 old male had abd pain, fevers and WBC 11 CT scan showed gb stones and pancretaitis (ncrosis reports on initial wet read?), Underwent lap indio, doing well, no fevers, no white ct wa son IV meropenem IV q8 by ID, REady to dc, possibly might not even need PO antibiotics Ff up GS 2 weeks Dw RN and pt Pt seen and examined. consults: GS and iD Proc: lap indio Discharge Information Condition at Discharge: Improved, Stable Follow Up: Weeks ( 2 weeks GS) Disposition/Orders: D/C to Home Miscellaneous Medications ([no home medications]) (Reported) RENE LUCAS MD Dec 22, 2016 10:20
--- NOTE | 2016-12-22 10:31 | PDOC ---
Provider Note Provider Note Hold dc , febrile just now 101 temp RENE LUCAS MD Dec 22, 2016 10:31
[2016-12-22] MEDS: HYDROCODONE/APAP 5/325MG TABLET. PO PRN (10:33)
[2016-12-22] MEDS ORDERED: ACETAMINOPHEN 325 MG TABLET. PO PRN (11:00)
[2016-12-22 11:21] VITALS: BP 136/73
--- NOTE | 2016-12-22 12:50 | PDOC ---
Provider Note Provider Note sitting up, smiling, eating, wants to go home. denies abd pain, sob. very disappointed that he may not go home today. febrile earlier today appears healthy abd soft nd nt inc cdi a/p no obvious cause for fever. appears well. no concerns from gen surg pov for dc , but will defer to ipc. CODY ZARAGOZA MD Dec 22, 2016 12:50
--- NOTE | 2016-12-22 13:05 | PDOC ---
Infectious Disease Note Subjective Subjective Comfortable, denies pain Tolerating regular diet well. No N/V/D Wants to go home Developed fever 101.8 earlier. ROS ROS GEN: Denies chills, sweats CV: Denies chest pain RESP: Denies shortness of air, cough Vital Sign Vital Signs Vital Signs Date Time Temp Pulse Resp B/P Pulse Ox O2 Delivery O2 Flow Rate FiO2 12/22/16 11:21 101.8 68 18 136/73 97 Room Air 101.8 Physical Exam PHYSICAL EXAM GENERAL: Alert, up in the chair, eating HEENT: PERRL, OC/OP pink and moist NECK: Supple LUNGS: Clear HEART: S1S2, no gallop, no murmur ABD: Obese, BS present, soft, NT. small incisions OPT. No redness or drainage. EXT: BLE trace edema. no cyanosis EARRING MAKER: Alert, oriented x 3, no focal neurologic deficit SKIN: No rash IV: ok Labs Lab Laboratory Tests Test 12/22/16 05:35 White Blood Count 10.4x10^3/uL (4.0-11.0) Red Blood Count 4.41x10^6/uL (4.30-5.70) Hemoglobin 14.1g/dL (13.0-17.5) Hematocrit 41.5% (39.0-53.0) Mean Corpuscular Volume 94fL (79-100) Mean Corpuscular Hemoglobin 32pg (25-35) Mean Corpuscular Hemoglobin Concent 34g/dL (31-37) Red Cell Distribution Width 12.8% (11.5-14.5) Platelet Count 177x10^3/uL (140-400) Neutrophils (%) (Auto) 74% (31-73) Lymphocytes (%) (Auto) 14% (24-48) Monocytes (%) (Auto) 11% (0-9) Eosinophils (%) (Auto) 1% (0-3) Basophils (%) (Auto) 0% (0-3) Neutrophils # (Auto) 7.7x10^3uL (1.8-7.7) Lymphocytes # (Auto) 1.5x10^3/uL (1.0-4.8) Monocytes # (Auto) 1.1x10^3/uL (0.0-1.1) Eosinophils # (Auto) 0.1x10^3/uL (0.0-0.7) Basophils # (Auto) 0.0x10^3/uL (0.0-0.2) Sodium Level 139mmol/L (136-145) Potassium Level 3.5mmol/L (3.5-5.1) Chloride Level 103mmol/L (98-107) Carbon Dioxide Level 28mmol/L (21-32) Anion Gap 8 (6-14) Blood Urea Nitrogen 13mg/dL (8-26) Creatinine 0.6mg/dL (0.7-1.3) Estimated GFR (Cockcroft-Gault) 137.4 Glucose Level 108mg/dL (70-99) Calcium Level 8.6mg/dL (8.5-10.1) Objective Assessment Fever Leukocytosis, better Pancreatitis, lipase improved Gallstone s/p Lap indio, 3/2 Plan Plan of Care Cont Meropenem Attending Co-Sign The patient was seen and interviewed as well as examined at the bedside. The chart was reviewed. The case was discussed. Agree with the plan of care. MUSA GILMORE APRN Dec 22, 2016 13:05 JUAN KIMBROUGH MD Dec 22, 2016 15:23
[2016-12-22 15:31] VITALS: BP 109/60
[2016-12-22 19:00] VITALS: BP 129/67
[2016-12-22 23:00] VITALS: BP 128/78
[2016-12-23 03:10] VITALS: BP 118/69
[2016-12-23] MEDS: MEROPENEM 1 GM in IV NORMAL SALINE 100ML 100 ML IV SCH (05:15)
[2016-12-23 07:00] VITALS: BP 125/62
--- NOTE | 2016-12-23 09:49 | PDOC ---
Infectious Disease Note Subjective Subjective Comfortable, denies pain Tolerating regular diet well. Wants to go home No fever nearly 24 hours ROS ROS GEN: Denies fevers, chills, sweats HEENT: Denies sore throat CV: Denies chest pain RESP: Denies shortness of air, cough GI: Denies n/v/d NEURO: Denies confusion, dizziness MSK: Denies weakness, joint pain/swelling Vital Sign Vital Signs Vital Signs Date Time Temp Pulse Resp B/P Pulse Ox O2 Delivery O2 Flow Rate FiO2 12/23/16 07:00 97.9 83 20 125/62 97 Room Air 97.9 Physical Exam PHYSICAL EXAM GENERAL: Alert, up in the chair, relaxed appearance LUNGS: Clear HEART: S1S2, no gallop, no murmur ABD: Obese, BS present, soft, NT. small incisions OPT. No redness or drainage. EXT: BLE trace edema. no cyanosis SOLUTION DIRECTOR: Alert, oriented x 3, no focal neurologic deficit SKIN: No rash IV: ok Objective Assessment Fever Leukocytosis, better Pancreatitis, lipase improved Gallstone s/p Lap indio, 3/ Plan Plan of Care Ok to discharge from ID standpoint Attending Co-Sign The patient was seen and interviewed as well as examined at the bedside. The chart was reviewed. The case was discussed. Agree with the plan of care. MUSA GILMORE APRN Dec 23, 2016 09:49 JUAN KIMBROUGH MD Dec 23, 2016 13:54
--- NOTE | 2016-12-23 10:52 | PDOC ---
Provider Note Provider Note Pt did not dc yesterday bec had temp No temps today Wants to go home Cleared from GS WIll await ID rounds MAR done RENE LUCAS MD Dec 23, 2016 10:51
[2016-12-23 10:57] VITALS: BP 120/63
[2016-12-23] MEDS ORDERED: AMOX1TAB61 PO (14:59)
[2016-12-23 15:08] VITALS: BP 114/63
--- NOTE | 2016-12-23 16:21 | PDOC ---
Provider Note Provider Note i saw him this am. he is smiling and feeling well wants to go home afeb abd soft nd nt agree with dc home. CODY ZARAGOZA MD Dec 23, 2016 16:21
[2016-12-23] MEDS ORDERED: AMOXICILLIN/K CLAV 875/125MG TABLET. PO SCH (21:00)
== END 2016-12-23 16:50 | disposition home or self-care (01) | DRG 419 ==
LOC: ER 00:57 → 5 NORTH 04:13
PROVIDERS: ADMIT Internal Medicine Hematology & Oncology; ATTEND Internal Medicine Hematology & Oncology
PROC: BF101ZZ Fluoroscopy of Bile Ducts using Low Osmolar Contrast (ICD-10-PCS; 2016-12-20)
PROC: 0FT44ZZ Resection of Gallbladder, Percutaneous Endoscopic Approach (ICD-10-PCS; principal; 2016-12-20 10:00)
DX: K85.10 Biliary acute pancreatitis without necrosis or infection (principal); E66.9 Obesity, unspecified; E78.00 Pure hypercholesterolemia, unspecified; K59.00 Constipation, unspecified; M54.5 Low back pain; D72.829 Elevated white blood cell count, unspecified; Z68.31 Body mass index [BMI] 31.0-31.9, adult; Z87.891 Personal history of nicotine dependence
CPT/HCPCS: 36415; 74177; 74300; 80047; 80048; 80053; 80076; 81001; 82465; 83690; 84484; 85027; 88304; 93005; 94250; 94760; 96374; 96375; C1782; J0690; J1100; J2185; J2250; J2270; J2405; J2704; J2710; J3010; J3490; J7030; Q9967; S0028; 99285-25